=== PATIENT | female | born 1945 | race Caucasian/White ===

== ENCOUNTER 2017-06-13 21:20 | Inpatient (IN) | payer MEDICARE ==
[~2017-06-13] VITALS: Ht 172.7 cm; Wt 115.8 kg
[~2017-06-13 21:20] MED LIST: ALBU0.63 NEB; ASPI-515 PO; ATOR10TA9 PO; ATROVENT INH; CEFD300C37 PO; CHOL500045 PO; DOXY100T PO; FLUT1DIS5 IH; IPRA12.9 INH; LEVO125T5 PO; LISI-167 PO; LISI1TAB5 PO; LORA-445 PO; PRED10TA PO; PRED5TAB PO; PRED5TAB25 PO; SALBUTAMOL INH; SERT100T PO; SERT25TA PO; SIMV20TA3 PO
[2017-06-13] MEDS ORDERED: blood pressure med (21:32)
[2017-06-13 21:59] LABS: BASOPHILS % (AUTO) 0 % (0-1); EOSINOPHILS # (AUTO) 0.02 x10^3/uL (0-0.4); EOSINOPHILS % (AUTO) 0 % (1-7); LYMPHOCYTES % (AUTO) 9 % (22-44); MD NO; MEAN CORPUSCULAR HEMOGLOBIN 30.7 pg (27.0-34.8); MEAN CORPUSCULAR HGB CONC 33.3 g/dL (32.4-35.8); MEAN CORPUSCULAR VOLUME 92.1 fL (80-100); MEAN PLATELET VOLUME 8.1 fL (7.4-10.4); MONOCYTES # (AUTO) 0.55 x10^3/uL (0.2-0.8); MONOCYTES % (AUTO) 4 % (2-9); NEUTROPHILS # (AUTO) 10.84 x10^3/uL (1.8-6.8); NEUTROPHILS % (AUTO) 87 % (42-75); PLATELET COUNT 266 x10^3/uL (130-400); RED BLOOD COUNT 3.95 x10^6/uL (3.82-5.3)
[2017-06-13 22:10] LABS: ALBUMIN 3.8 g/dL (3.4-5.0); ANION GAP 6 mmol/L (5-15); CALCIUM 8.5 mg/dL (8.5-10.1); CHLORIDE 102 mmol/L (98-107); CREATININE 1.53 mg/dL (0.55-1.02)
[2017-06-13] MEDS ORDERED: HYDROmorphone 1 MG/ML, 1ML ONE (22:18)
[2017-06-13] MEDS ORDERED: ONDANSETRON 2MG/ML, 2ML ONE (22:18)
[2017-06-13] MEDS ORDERED: HYDROmorphone 1 MG/ML, 1ML IVPush PRN ×2 (22:30→23:00)
[2017-06-13] MEDS ORDERED: ONDANSETRON 2MG/ML, 2ML IVPush ONE (22:30)
[2017-06-13] MEDS ORDERED: ONDANSETRON 2MG/ML, 2ML IVPush PRN (23:00)
[2017-06-13] MEDS ORDERED: LORazepam 0.5MG TABLET PO PRN (23:30)
[2017-06-13] MEDS ORDERED: SODIUM CHLORIDE 0.9% 1,000 ML IV SCH (23:31)
[2017-06-14] VITALS (17 sets, daily range): BP systolic 59–93; BP diastolic 39–67
[2017-06-14] MEDS ORDERED: OXYcodone IR 5MG TABLET PO PRN
[2017-06-14] MEDS ORDERED: ACETAMINOPHEN 325 MG TABLET PO PRN
[2017-06-14] MEDS ORDERED: BISACODYL 10 MG SUPP PR PRN
[2017-06-14] MEDS ORDERED: ENALAPRILAT 1.25 MG/ML, 2ML IVPush PRN
[2017-06-14] MEDS ORDERED: IPRATROPIUM 0.5 MG/2.5 ML INHA NPPB SCH
[2017-06-14] MEDS ORDERED: POLYETHYLENE GLYCOL 17 GM PACKET PO PRN
[2017-06-14] MEDS ORDERED: ONDANSETRON 2MG/ML, 2ML IVPush PRN
[2017-06-14] MEDS ORDERED: hydrALAzine 20 MG/ML, 1ML IVPush PRN
[2017-06-14 00:01] LABS: FREE T4 (FREE THYROXINE) 1.05 ng/dL (0.76-1.46); THYROID STIMULATING HORMONE 16.9 mIU/L (0.358-3.740)
[2017-06-14 00:04] LABS: HEMOGLOBIN A1C 5.2 % (4.2-6.3)
[2017-06-14] MEDS: morphine SULFATE 10 MG/ML, 1ML IVPush PRN ×3 (00:48→05:59)
[2017-06-14] MEDS ORDERED: ALBUTEROL/IPRATROPIUM 2.5MG/0.5MG, 3 ML NPPB PRN (01:00)
[2017-06-14 02:37] LABS: MICROSCOPIC NOT IND
[2017-06-14 02:41] LABS: CULTURE INDICATED? NO
[2017-06-14 06:28] LABS: MEAN CORPUSCULAR HEMOGLOBIN 30.7 pg (27.0-34.8); MEAN CORPUSCULAR HGB CONC 33.7 g/dL (32.4-35.8); MEAN CORPUSCULAR VOLUME 91.1 fL (80-100); PLATELET COUNT 273 x10^3/uL (130-400); RED BLOOD COUNT 3.49 x10^6/uL (3.82-5.3)
[2017-06-14 06:32] LABS: ALANINE AMINOTRANSFERASE 19 U/L (12-78); ALBUMIN 3.6 g/dL (3.4-5.0); ANION GAP 7 mmol/L (5-15); CALCIUM 8.4 mg/dL (8.5-10.1); CHLORIDE 103 mmol/L (98-107); CHOLESTEROL, TOTAL 226 mg/dL (140-239); CREATININE 2.55 mg/dL (0.55-1.02)
[2017-06-14 06:34] LABS: ALKALINE PHOSPHATASE 51 U/L (45-117); BILIRUBIN,TOTAL 0.4 mg/dL (0.2-1.0); TOTAL PROTEIN 6.3 g/dL (6.4-8.2); TRIGLYCERIDES 72 mg/dL (50-200); VLDL CHOLESTEROL 14 mg/dL (0-25)
[2017-06-14 06:43] LABS: CHOL/HDL RATIO 2.3; HDL CHOL % 43 % (28-40); HDL CHOLESTEROL (DIRECT) 98 mg/dL (40-60); LDL CHOLESTEROL,CALCULATED 114 mg/dL (54-169); LDL/HDL RATIO 1.2 (0.5-3.0)
[2017-06-14] MEDS: LEVOTHYROXINE 125 MCG TABLET PO SCH (06:59)
[2017-06-14] MEDS: SENNA/DOCUSATE TABLET PO SCH (06:59)
[2017-06-14] MEDS: SERTRALINE 100MG TABLET PO SCH (06:59)
[2017-06-14 07:33] LABS: MD YES
[2017-06-14 07:34] LABS: BAND#(MANUAL) 0.18 x10^3/uL; BANDS%(MANUAL) 1 % (0-7); LYMPH#(MANUAL) 1.62 x10^3/uL (1-3.4); LYMPHS% (MANUAL) 9 % (22-44); MONOS#(MANUAL) 1.62 x10^3/uL (0.3-2.7); MONOS% (MANUAL) 9 % (2-9); SEG#(MANUAL) 14.58 x10^3/uL (1.8-6.8); SEGS% (MANUAL) 81 % (42-75)
[2017-06-14 07:35] LABS: <PLATELET ESTIMATE> ADEQUATE; <PLT MORPHOLOGY> NORMAL PLT MORPH; <RBC MORPHOLOGY> NORMAL
[2017-06-14] MEDS ORDERED: HYDROCHLOROTHIAZIDE 12.5 MG CAPSULE PO SCH (09:00)
[2017-06-14] MEDS: FLUTICASONE/VILANTEROL 200-25MCG/INH INH SCH (09:00)
[2017-06-14] MEDS ORDERED: LISINOPRIL 20 MG TABLET PO SCH (09:00)
[2017-06-14] MEDS ORDERED: KETOROLAC 30 MG/1 ML IVPush PRN ×2 (11:00→19:30)
[2017-06-14] MEDS: SODIUM CHLORIDE 0.9% 1,000 ML IV SCH (11:30)
[2017-06-14] MEDS ORDERED: SODIUM CHLORIDE 0.9% 1,000ML IVBOLUS ONE ×2 (12:30→14:30)
[2017-06-14] MEDS ORDERED: NALOXONE 0.4 MG/ML, 1ML IVPush ONE (13:00)
[2017-06-14] MEDS ORDERED: KETOROLAC 30 MG/1 ML IVPush SCH (13:30)
[2017-06-14] MEDS: HYDROCORTISONE 100 MG INJ. IVPush SCH ×2 (13:58→21:33)
[2017-06-14] MEDS: ACETAMINOPHEN 500 MG TABLET PO SCH ×2 (14:00→21:33)
[2017-06-14] MEDS: HEPARIN 5,000 UNITS/ML, 1ML SQ SCH (15:46)
[2017-06-14] MEDS ORDERED: SODIUM CHLORIDE 0.9%, 500ML IVBOLUS ONE (17:30)
[2017-06-14] MEDS: SIMVASTATIN 20 MG TABLET PO SCH (21:33)
[2017-06-14] MEDS ORDERED: ALUMINUM/MAG/SIMETHICONE 30 ML UDC PO ONE (23:30)
[2017-06-15] VITALS (12 sets, daily range): BP systolic 76–141; BP diastolic 48–81
[2017-06-15] MEDS: SODIUM CHLORIDE 0.9% 1,000 ML IV SCH ×2 (00:09→07:45)
[2017-06-15] MEDS: HEPARIN 5,000 UNITS/ML, 1ML SQ SCH ×4 (00:09→18:39)
[2017-06-15 05:27] LABS: ANION GAP 5 mmol/L (5-15); CALCIUM 8.1 mg/dL (8.5-10.1); CHLORIDE 107 mmol/L (98-107)
[2017-06-15 05:29] LABS: CREATININE 2.73 mg/dL (0.55-1.02)
[2017-06-15 05:30] LABS: MEAN CORPUSCULAR HEMOGLOBIN 32.4 pg (27.0-34.8); MEAN CORPUSCULAR HGB CONC 34.6 g/dL (32.4-35.8); MEAN CORPUSCULAR VOLUME 93.6 fL (80-100); MEAN PLATELET VOLUME 8.5 fL (7.4-10.4); PLATELET COUNT 186 x10^3/uL (130-400); RED BLOOD COUNT 2.64 x10^6/uL (3.82-5.3); RED CELL DISTRIBUTION WIDTH 14.8 % (9.6-15.2)
[2017-06-15 05:58] LABS: MD YES
[2017-06-15 06:00] LABS: BAND#(MANUAL) 0.18 x10^3/uL; BANDS%(MANUAL) 1 % (0-7); LYMPH#(MANUAL) 0.92 x10^3/uL (1-3.4); LYMPHS% (MANUAL) 5 % (22-44); MONOS#(MANUAL) 0.37 x10^3/uL (0.3-2.7); MONOS% (MANUAL) 2 % (2-9); MYELOCYTES# (MANUAL) 0.18 x10^3/uL (0-0); MYELOCYTES% (MANUAL) 1 % (0-0); SEG#(MANUAL) 16.74 x10^3/uL (1.8-6.8); SEGS% (MANUAL) 91 % (42-75)
[2017-06-15 06:02] LABS: <PLATELET ESTIMATE> ADEQUATE; <PLT MORPHOLOGY> NORMAL PLT MORPH; ANISOCYTOSIS 1+
[2017-06-15] MEDS ORDERED: OMEPRAZOLE 20 MG CAPSULE.DR PO SCH (07:30)
[2017-06-15] MEDS: LEVOTHYROXINE 125 MCG TABLET PO SCH (07:42)
[2017-06-15] MEDS: HYDROCORTISONE 100 MG INJ. IVPush SCH ×3 (07:42→22:58)
[2017-06-15] MEDS: FLUTICASONE/VILANTEROL 200-25MCG/INH INH SCH (07:46)
[2017-06-15] MEDS: SENNA/DOCUSATE TABLET PO SCH (07:47)
[2017-06-15] MEDS: SERTRALINE 100MG TABLET PO SCH (07:47)
[2017-06-15] MEDS: ACETAMINOPHEN 500 MG TABLET PO SCH ×3 (09:00→20:55)
[2017-06-15] MEDS: SALBUTAMOL INH PRN (09:00)
[2017-06-15] MEDS: LACTATED RINGERS 1,000 ML IV SCH ×2 (13:57→20:10)
[2017-06-15] MEDS: FAMOTIDINE 20 MG/2 ML IVPush SCH ×2 (14:10→20:55)
[2017-06-15] MEDS: SIMVASTATIN 20 MG TABLET PO SCH (20:55)
[2017-06-16] VITALS (10 sets, daily range): BP systolic 115–216; BP diastolic 62–99
[2017-06-16] MEDS: LACTATED RINGERS 1,000 ML IV SCH ×2 (03:34→09:51)
[2017-06-16 05:14] LABS: BASOPHILS # (AUTO) 0.01 x10^3/uL (0-0.1); BASOPHILS % (AUTO) 0 % (0-1); EOSINOPHILS % (AUTO) 0 % (1-7); LYMPHOCYTES # (AUTO) 0.55 x10^3/uL (1-3.4); LYMPHOCYTES % (AUTO) 4 % (22-44); MD NO; MEAN CORPUSCULAR HEMOGLOBIN 32.7 pg (27.0-34.8); MEAN CORPUSCULAR HGB CONC 34.7 g/dL (32.4-35.8); MEAN CORPUSCULAR VOLUME 94.4 fL (80-100); MEAN PLATELET VOLUME 8.9 fL (7.4-10.4); MONOCYTES # (AUTO) 0.51 x10^3/uL (0.2-0.8); MONOCYTES % (AUTO) 4 % (2-9); NEUTROPHILS # (AUTO) 13.42 x10^3/uL (1.8-6.8); NEUTROPHILS % (AUTO) 93 % (42-75); PLATELET COUNT 184 x10^3/uL (130-400); RED BLOOD COUNT 2.71 x10^6/uL (3.82-5.3)
[2017-06-16 05:23] LABS: ANION GAP 6 mmol/L (5-15); CALCIUM 8.5 mg/dL (8.5-10.1); CHLORIDE 111 mmol/L (98-107)
[2017-06-16] MEDS: HEPARIN 5,000 UNITS/ML, 1ML SQ SCH ×3 (05:23→21:07)
[2017-06-16] MEDS: HYDROCORTISONE 100 MG INJ. IVPush SCH ×2 (06:00→21:08)
[2017-06-16] MEDS: FLUTICASONE/VILANTEROL 200-25MCG/INH INH SCH (07:47)
[2017-06-16] MEDS: SALBUTAMOL INH PRN (07:48)
[2017-06-16] MEDS ORDERED: LORazepam 2 MG/ML, 1ML ONE (08:04)
[2017-06-16] MEDS: FAMOTIDINE 20 MG/2 ML IVPush SCH ×2 (08:08→08:51)
[2017-06-16] MEDS: LEVOTHYROXINE 125 MCG TABLET PO SCH (08:08)
[2017-06-16] MEDS ORDERED: LORazepam 2 MG/ML, 1ML IVPush PRN (08:30)
[2017-06-16] MEDS: SENNA/DOCUSATE TABLET PO SCH (08:49)
[2017-06-16] MEDS: SERTRALINE 100MG TABLET PO SCH (08:54)
[2017-06-16] MEDS: ACETAMINOPHEN 500 MG TABLET PO SCH ×2 (08:54→21:08)
[2017-06-16] MEDS ORDERED: AMLODIPINE 5 MG TABLET ONE (12:57)
[2017-06-16] MEDS ORDERED: AMLODIPINE 5 MG TABLET PO ONE (13:00)
[2017-06-16] MEDS ORDERED: ONDANSETRON 2MG/ML, 2ML ONE (13:30)
[2017-06-16] MEDS ORDERED: SUCCINYLCHOLINE 20 MG/ML, 10ML ONE (13:30)
[2017-06-16] MEDS ORDERED: MIDAZOLAM 1 MG/ML, 2ML ONE (13:30)
[2017-06-16] MEDS ORDERED: ROCURONIUM 10MG/ML,5ML ONE (13:30)
[2017-06-16] MEDS ORDERED: CEFAZOLIN 1,000 MG ONE (13:30)
[2017-06-16] MEDS ORDERED: PROPOFOL 10 MG/ML, 20ML ONE (13:30)
[2017-06-16] MEDS ORDERED: FENTANYL PF 250 MCG/5ML ONE (13:31)
[2017-06-16] MEDS ORDERED: hydrALAzine 20 MG/ML, 1ML IV PRN (14:30)
[2017-06-16] MEDS ORDERED: OXYcodone 5 MG/5 ML ORAL.SOL UDC PO PRN (14:30)
[2017-06-16] MEDS ORDERED: ONDANSETRON 2MG/ML, 2ML IVPush PRN (14:30)
[2017-06-16] MEDS ORDERED: ACETAMINOPHEN 325 MG TABLET PO PRN (14:30)
[2017-06-16] MEDS ORDERED: LABETALOL 5MG/ML, 20ML IV PRN (14:30)
[2017-06-16] MEDS ORDERED: FENTANYL PF 100 MCG/2ML IV PRN (14:30)
[2017-06-16] MEDS ORDERED: HYDROmorphone 1 MG/ML, 1ML IV PRN ×2 (14:30→16:30)
[2017-06-16] MEDS ORDERED: LABETALOL 5MG/ML, 20ML ONE (14:55)
[2017-06-16] MEDS ORDERED: OXYcodone 5 MG/5 ML ORAL.SOL UDC ONE (14:55)
[2017-06-16] MEDS ORDERED: ONDANSETRON 2MG/ML, 2ML IV PRN (16:30)
[2017-06-16] MEDS ORDERED: HYDROcodone/APAP 7.5-325MG/15ML UDC PO PRN (16:30)
[2017-06-16] MEDS: KETOROLAC 30 MG/1 ML IV SCH (17:22)
[2017-06-16] MEDS: DOCUSATE 100 MG CAPSULE PO SCH (21:07)
[2017-06-16] MEDS: SODIUM CHLORIDE FLUSH 10ML SYR IVF SCH (21:08)
[2017-06-16] MEDS: CEFAZOLIN PMX 2GM/100ML 100 ML IVPB SCH (21:08)
[2017-06-16] MEDS: SIMVASTATIN 20 MG TABLET PO SCH (21:08)
[2017-06-17 00:30] VITALS: BP 115/60
[2017-06-17] MEDS: KETOROLAC 30 MG/1 ML IV SCH ×2 (01:11→09:16)
[2017-06-17 04:10] VITALS: BP 136/71
[2017-06-17] MEDS: HEPARIN 5,000 UNITS/ML, 1ML SQ SCH ×3 (05:15→20:55)
[2017-06-17] MEDS: CEFAZOLIN PMX 2GM/100ML 100 ML IVPB SCH (05:15)
[2017-06-17 05:45] LABS: MEAN CORPUSCULAR HEMOGLOBIN 31.7 pg (27.0-34.8); MEAN CORPUSCULAR HGB CONC 33.4 g/dL (32.4-35.8); MEAN CORPUSCULAR VOLUME 94.8 fL (80-100); MEAN PLATELET VOLUME 8.8 fL (7.4-10.4); PLATELET COUNT 163 x10^3/uL (130-400); RED BLOOD COUNT 2.29 x10^6/uL (3.82-5.3); RED CELL DISTRIBUTION WIDTH 14.9 % (9.6-15.2)
[2017-06-17 05:46] LABS: ANION GAP 4 mmol/L (5-15); CALCIUM 8.5 mg/dL (8.5-10.1); CHLORIDE 110 mmol/L (98-107); CREATININE 1.54 mg/dL (0.55-1.02)
[2017-06-17] MEDS ORDERED: ENOXAPARIN 40 MG/0.4 ML SQ SCH (06:00)
[2017-06-17 06:18] LABS: BASOPHILS % (AUTO) 0 % (0-1); EOSINOPHILS % (AUTO) 0 % (1-7); LYMPHOCYTES # (AUTO) 0.61 x10^3/uL (1-3.4); LYMPHOCYTES % (AUTO) 6 % (22-44); MD SCAN; MONOCYTES # (AUTO) 0.87 x10^3/uL (0.2-0.8); MONOCYTES % (AUTO) 8 % (2-9); NEUTROPHILS # (AUTO) 9.15 x10^3/uL (1.8-6.8); NEUTROPHILS % (AUTO) 86 % (42-75)
[2017-06-17] MEDS ORDERED: LACTATED RINGERS 1,000 ML IVBOLUS ONE (07:00)
[2017-06-17 08:00] VITALS: BP 141/77
[2017-06-17] MEDS ORDERED: AMLODIPINE 5 MG TABLET PO SCH (09:00)
[2017-06-17] MEDS: DOCUSATE 100 MG CAPSULE PO SCH ×3 (09:00→20:56)
[2017-06-17] MEDS: SENNA/DOCUSATE TABLET PO SCH ×2 (09:00→09:17)
[2017-06-17] MEDS: HYDROCORTISONE 100 MG INJ. IVPush SCH (09:15)
[2017-06-17] MEDS: ACETAMINOPHEN 500 MG TABLET PO SCH ×2 (09:15→20:55)
[2017-06-17] MEDS: FLUTICASONE/VILANTEROL 200-25MCG/INH INH SCH (09:15)
[2017-06-17] MEDS: SERTRALINE 100MG TABLET PO SCH (09:16)
[2017-06-17] MEDS: LISINOPRIL 20 MG TABLET PO SCH (09:16)
[2017-06-17] MEDS: HYDROCHLOROTHIAZIDE 12.5 MG CAPSULE PO SCH (09:16)
[2017-06-17] MEDS: FAMOTIDINE 20 MG/2 ML IVPush SCH (09:16)
[2017-06-17] MEDS: LEVOTHYROXINE 125 MCG TABLET PO SCH (09:17)
[2017-06-17] MEDS: SODIUM CHLORIDE FLUSH 10ML SYR IVF SCH ×2 (09:17→21:00)
[2017-06-17] MEDS ORDERED: HYDROCORTISONE 5 MG TABLET ONE (11:52)
[2017-06-17] MEDS: HYDROCORTISONE 10 MG TABLET PO SCH ×2 (11:59→16:47)
[2017-06-17 12:55] VITALS: BP 167/73
[2017-06-17 20:00] VITALS: BP 169/86
[2017-06-17] MEDS: SIMVASTATIN 20 MG TABLET PO SCH (20:55)
[2017-06-18] VITALS (8 sets, daily range): BP systolic 136–175; BP diastolic 69–86
[2017-06-18 05:08] LABS: ANION GAP 4 mmol/L (5-15); CHLORIDE 109 mmol/L (98-107); MEAN CORPUSCULAR HEMOGLOBIN 33.1 pg (27.0-34.8); MEAN CORPUSCULAR VOLUME 94.6 fL (80-100); MEAN PLATELET VOLUME 8.7 fL (7.4-10.4); PLATELET COUNT 158 x10^3/uL (130-400); RED BLOOD COUNT 2.13 x10^6/uL (3.82-5.3); RED CELL DISTRIBUTION WIDTH 14.7 % (9.6-15.2)
[2017-06-18 05:09] LABS: CREATININE 1.36 mg/dL (0.55-1.02)
[2017-06-18] MEDS ORDERED: DIPHENHYDRAMINE 12.5MG/5ML, 10ML UDC PO ONE (05:30)
[2017-06-18 05:41] LABS: BASOPHILS # (AUTO) 0.03 x10^3/uL (0-0.1); BASOPHILS % (AUTO) 0 % (0-1); EOSINOPHILS # (AUTO) 0.03 x10^3/uL (0-0.4); EOSINOPHILS % (AUTO) 0 % (1-7); LYMPHOCYTES # (AUTO) 1.14 x10^3/uL (1-3.4); LYMPHOCYTES % (AUTO) 14 % (22-44); MD SCAN; MONOCYTES # (AUTO) 0.84 x10^3/uL (0.2-0.8); MONOCYTES % (AUTO) 10 % (2-9); NEUTROPHILS # (AUTO) 6.17 x10^3/uL (1.8-6.8); NEUTROPHILS % (AUTO) 75 % (42-75)
[2017-06-18] MEDS: POTASSIUM CHLORIDE 20 MEQ TAB.ER.PRT PO ONE ×2 (05:46→07:14)
[2017-06-18] MEDS: HEPARIN 5,000 UNITS/ML, 1ML SQ SCH ×3 (05:46→21:32)
[2017-06-18] MEDS ORDERED: SENN1TAB7 PO (07:52)
[2017-06-18] MEDS ORDERED: ENOX40SY4 SQ (07:52)
[2017-06-18] MEDS ORDERED: POLY17PO5 PO (07:52)
[2017-06-18] MEDS ORDERED: IPRA3AMP NPPB (07:52)
[2017-06-18] MEDS ORDERED: ACET500T71 PO (07:52)
[2017-06-18] MEDS ORDERED: OXYC1TAB7 PO (07:52)
[2017-06-18] MEDS: SODIUM CHLORIDE FLUSH 10ML SYR IVF SCH ×2 (09:00→21:33)
[2017-06-18] MEDS: SERTRALINE 100MG TABLET PO SCH (09:45)
[2017-06-18] MEDS: SENNA/DOCUSATE TABLET PO SCH (09:45)
[2017-06-18] MEDS: FAMOTIDINE 20 MG/2 ML IVPush SCH (09:45)
[2017-06-18] MEDS: LEVOTHYROXINE 125 MCG TABLET PO SCH (09:45)
[2017-06-18] MEDS: DOCUSATE 100 MG CAPSULE PO SCH ×2 (09:45→21:00)
[2017-06-18] MEDS: LISINOPRIL 20 MG TABLET PO SCH (09:45)
[2017-06-18] MEDS: HYDROCHLOROTHIAZIDE 12.5 MG CAPSULE PO SCH (09:45)
[2017-06-18] MEDS: ACETAMINOPHEN 500 MG TABLET PO SCH ×2 (09:45→21:33)
[2017-06-18] MEDS: FLUTICASONE/VILANTEROL 200-25MCG/INH INH SCH (09:47)
[2017-06-18] MEDS: OXYcodone/APAP 5/325MG TABLET PO PRN (14:03)
[2017-06-18] MEDS: SIMVASTATIN 20 MG TABLET PO SCH (21:33)
[2017-06-19 02:58] VITALS: BP 158/82
[2017-06-19] MEDS: HEPARIN 5,000 UNITS/ML, 1ML SQ SCH ×2 (05:53→13:05)
[2017-06-19] MEDS ORDERED: MAGNESIUM CITRATE 300ML ORAL SOL PO ONE (08:00)
[2017-06-19] MEDS: FLUTICASONE/VILANTEROL 200-25MCG/INH INH SCH (08:02)
[2017-06-19] MEDS: SENNA/DOCUSATE TABLET PO SCH (08:02)
[2017-06-19] MEDS: LEVOTHYROXINE 125 MCG TABLET PO SCH (08:02)
[2017-06-19] MEDS: LISINOPRIL 20 MG TABLET PO SCH (08:02)
[2017-06-19] MEDS: ACETAMINOPHEN 500 MG TABLET PO SCH (08:02)
[2017-06-19] MEDS: HYDROCHLOROTHIAZIDE 12.5 MG CAPSULE PO SCH (08:03)
[2017-06-19] MEDS: DOCUSATE 100 MG CAPSULE PO SCH (08:03)
[2017-06-19] MEDS: FAMOTIDINE 20 MG/2 ML IVPush SCH (08:03)
[2017-06-19] MEDS: SERTRALINE 100MG TABLET PO SCH (08:03)
[2017-06-19 08:09] VITALS: BP 139/88
[2017-06-19] MEDS: SODIUM CHLORIDE FLUSH 10ML SYR IVF SCH (08:12)
[2017-06-19] MEDS ORDERED: SENNA/DOCUSATE TABLET PO SCH (09:00)
[2017-06-19 12:59] VITALS: BP 148/68
[2017-06-19] MEDS: OXYcodone/APAP 5/325MG TABLET PO PRN (14:18)
[2017-06-20] MEDS ORDERED: FAMOTIDINE 20 MG TABLET PO SCH (09:00)
== END 2017-06-19 16:28 | DRG 480 ==
LOC: ED 22:03 → 4NOR 22:34 → ED 23:29
PROVIDERS: ADMIT Internal Medicine; ATTEND Internal Medicine
PROC: 0QSC35Z Reposition Left Lower Femur with External Fixation Device, Percutaneous Approach (ICD-10-PCS; principal; 2017-06-16 15:00)
PROC: 30233N1 Transfusion of Nonautologous Red Blood Cells into Peripheral Vein, Percutaneous Approach (ICD-10-PCS; 2017-06-18)
DX: S72.492A Other fracture of lower end of left femur, initial encounter for closed fracture (principal); N17.0 Acute kidney failure with tubular necrosis; J96.10 Chronic respiratory failure, unspecified whether with hypoxia or hypercapnia; E27.3 Drug-induced adrenocortical insufficiency; Z99.81 Dependence on supplemental oxygen; E66.01 Morbid (severe) obesity due to excess calories; J44.9 Chronic obstructive pulmonary disease, unspecified; W01.0XXA Fall on same level from slipping, tripping and stumbling without subsequent striking against object, initial encounter; E78.5 Hyperlipidemia, unspecified; N18.3 Chronic kidney disease, stage 3 (moderate); I12.9 Hypertensive chronic kidney disease with stage 1 through stage 4 chronic kidney disease, or unspecified chronic kidney disease; Z68.34 Body mass index [BMI] 34.0-34.9, adult; E55.9 Vitamin D deficiency, unspecified; E89.0 Postprocedural hypothyroidism; F32.9 Major depressive disorder, single episode, unspecified; Z87.891 Personal history of nicotine dependence; T38.0X5A Adverse effect of glucocorticoids and synthetic analogues, initial encounter; D64.9 Anemia, unspecified; W01.198A Fall on same level from slipping, tripping and stumbling with subsequent striking against other object, initial encounter; Y93.89 Activity, other specified; Y92.89 Other specified places as the place of occurrence of the external cause; Y99.8 Other external cause status
CPT/HCPCS: 36415; 71045; 76000; 80048; 80053; 80061; 81003; 82040; 83036; 83735; 84439; 84443; 85014; 85018; 85025; 86850; 86900; 86923; 93005; 96374; 96375; C1713; J0690; J1170; J1644; J1885; J2250; J2310; J2405; J2704; J3010; J0330; J1720; J2060; J2270; J7030; J7040; J7120; P9016; S0028

== ENCOUNTER 2017-08-08 19:32 | Inpatient (IN) | payer MEDICARE ==
[~2017-08-08] VITALS: Ht 167.6 cm; Wt 98.1 kg
[~2017-08-08 19:32] MED LIST changes: +ACET500T71 PO; +ENOX40SY4 SQ; +IPRA3AMP NPPB; +OXYC1TAB7 PO; +POLY17PO5 PO; +SENN1TAB7 PO; +blood pressure med
[2017-08-08] MEDS ORDERED: ALBUTEROL/IPRATROPIUM 2.5MG/0.5MG, 3 ML ONE (19:37)
[2017-08-08] MEDS ORDERED: LABETALOL 5MG/ML, 20ML ONE ×2 (19:40→19:42)
[2017-08-08] MEDS ORDERED: NITROGLYCERIN/D5W PMX 0 ML ONE (19:40)
[2017-08-08] MEDS ORDERED: NITROGLYCERIN/D5W PMX 250 ML ONE (19:43)
[2017-08-08] MEDS ORDERED: methylPREDNISolone SOD SUCC 125 MG/2 ML ONE (19:46)
[2017-08-08] MEDS ORDERED: methylPREDNISolone SOD SUCC 125 MG/2 ML IVP ONE (20:00)
[2017-08-08] MEDS ORDERED: SODIUM CHLORIDE FLUSH 10ML SYR IVF ONE (20:00)
[2017-08-08] MEDS ORDERED: LABETALOL 5MG/ML, 20ML IVPush ONE (20:00)
[2017-08-08] MEDS ORDERED: NITROGLYCERIN/D5W PMX 250 ML IV PRN (20:00)
[2017-08-08] MEDS ORDERED: ALBUTEROL/IPRATROPIUM 2.5MG/0.5MG, 3 ML NPPB SCH (20:00)
[2017-08-08] MEDS ORDERED: ALBUTEROL/IPRATROPIUM 2.5MG/0.5MG, 3 ML NPPB PRN ×3 (20:00→23:00)
[2017-08-08 20:04] LABS: BASOPHILS # (AUTO) 0.01 x10^3/uL (0-0.1); BASOPHILS % (AUTO) 0 % (0-1); EOSINOPHILS # (AUTO) 0.01 x10^3/uL (0-0.4); EOSINOPHILS % (AUTO) 0 % (1-7); LYMPHOCYTES # (AUTO) 1.11 x10^3/uL (1-3.4); LYMPHOCYTES % (AUTO) 8 % (22-44); MD NO; MEAN CORPUSCULAR HEMOGLOBIN 34.9 pg (27.0-34.8); MEAN CORPUSCULAR HGB CONC 35.8 g/dL (32.4-35.8); MEAN CORPUSCULAR VOLUME 97.6 fL (80-100); MEAN PLATELET VOLUME 8.5 fL (7.4-10.4); MONOCYTES # (AUTO) 0.06 x10^3/uL (0.2-0.8); MONOCYTES % (AUTO) 0 % (2-9); NEUTROPHILS # (AUTO) 13.69 x10^3/uL (1.8-6.8); NEUTROPHILS % (AUTO) 92 % (42-75); PLATELET COUNT 276 x10^3/uL (130-400); RED BLOOD COUNT 3.47 x10^6/uL (3.82-5.3); RED CELL DISTRIBUTION WIDTH 15.7 % (9.6-15.2)
[2017-08-08 20:13] LABS: ALANINE AMINOTRANSFERASE 34 U/L (12-78); ALBUMIN 3.9 g/dL (3.4-5.0); ANION GAP 9 mmol/L (5-15); CALCIUM 9.3 mg/dL (8.5-10.1); CHLORIDE 103 mmol/L (98-107); CREATININE 1.25 mg/dL (0.55-1.02); INTERNATIONAL NORMALIZED RATIO 1.03 (0.93-1.1); PROTHROMBIN TIME 10.7 Seconds (9.6-11.5)
[2017-08-08 20:17] LABS: ALKALINE PHOSPHATASE 108 U/L (45-117); BILIRUBIN,TOTAL 0.5 mg/dL (0.2-1.0); TOTAL PROTEIN 7.7 g/dL (6.4-8.2); TROPONIN I 0.091 ng/mL (0.000-0.045)
[2017-08-08] MEDS ORDERED: CEFTRIAXONE PMX 1GM/50ML 50 ML ONE (20:20)
[2017-08-08] MEDS ORDERED: NITROGLYCERIN OINT 2%, 1GM TP ONE ×2 (20:20→20:30)
[2017-08-08] MEDS ORDERED: FUROSEMIDE 20 MG/2 ML ONE (20:27)
[2017-08-08] MEDS ORDERED: ASPIRIN 325 MG TABLET ONE (20:27)
[2017-08-08] MEDS ORDERED: AZITHROMYCIN 500 MG in SODIUM CHLORIDE 0.9% 250 ML IVPB ONE (20:30)
[2017-08-08] MEDS ORDERED: CEFTRIAXONE PMX 1GM/50ML 50 ML IVPB ONE (20:30)
[2017-08-08] MEDS ORDERED: ASPIRIN 325 MG TABLET PO ONE (20:30)
[2017-08-08] MEDS ORDERED: FUROSEMIDE 20 MG/2 ML IV ONE (20:30)
[2017-08-08] MEDS ORDERED: ALBUTEROL SULFATE 2.5 MG/3 ML ONE (20:43)
[2017-08-08] MEDS ORDERED: hydrALAzine 20 MG/ML, 1ML IVPush PRN (22:00)
[2017-08-08] MEDS ORDERED: DOCUSATE 100 MG CAPSULE PO PRN (22:00)
[2017-08-08] MEDS ORDERED: ACETAMINOPHEN 325 MG TABLET PO PRN (22:00)
[2017-08-08] MEDS ORDERED: RIVA10TA PO (23:12)
[2017-08-08] MEDS ORDERED: PRED20TA PO (23:12)
[2017-08-08 23:13] VITALS: BP 143/85
[2017-08-09] MEDS: SIMVASTATIN 20 MG TABLET PO SCH ×2 (00:30→20:00)
[2017-08-09] MEDS ORDERED: IPRA4AER INH (02:11)
[2017-08-09 02:24] VITALS: BP 135/82
[2017-08-09 02:33] LABS: TROPONIN I 0.397 ng/mL (0.000-0.045)
[2017-08-09] MEDS: ALBUTEROL/IPRATROPIUM 2.5MG/0.5MG, 3 ML NPPB SCH ×4 (06:11→20:05)
[2017-08-09 08:08] LABS: BASOPHILS # (AUTO) 0.02 x10^3/uL (0-0.1); BASOPHILS % (AUTO) 0 % (0-1); EOSINOPHILS % (AUTO) 0 % (1-7); LYMPHOCYTES # (AUTO) 0.34 x10^3/uL (1-3.4); LYMPHOCYTES % (AUTO) 4 % (22-44); MD NO; MEAN CORPUSCULAR HEMOGLOBIN 30.8 pg (27.0-34.8); MEAN CORPUSCULAR HGB CONC 32.9 g/dL (32.4-35.8); MEAN CORPUSCULAR VOLUME 93.7 fL (80-100); MONOCYTES # (AUTO) 0.21 x10^3/uL (0.2-0.8); MONOCYTES % (AUTO) 2 % (2-9); NEUTROPHILS # (AUTO) 8.71 x10^3/uL (1.8-6.8); NEUTROPHILS % (AUTO) 94 % (42-75); PLATELET COUNT 188 x10^3/uL (130-400); RED BLOOD COUNT 3.19 x10^6/uL (3.82-5.3)
[2017-08-09 08:20] VITALS: BP 158/89
[2017-08-09 08:20] LABS: ANION GAP 8 mmol/L (5-15); CALCIUM 8.5 mg/dL (8.5-10.1); CHLORIDE 103 mmol/L (98-107); CREATININE 1.26 mg/dL (0.55-1.02)
[2017-08-09 08:24] LABS: TROPONIN I 0.236 ng/mL (0.000-0.045)
[2017-08-09] MEDS ORDERED: FLUT1BLS INH (09:25)
[2017-08-09] MEDS ORDERED: FLUTICASONE/VILANTEROL 200-25MCG/INH INH SCH (09:30)
[2017-08-09] MEDS: FUROSEMIDE 20 MG/2 ML IV SCH ×2 (09:54→17:27)
[2017-08-09] MEDS: LORazepam 0.5MG TABLET PO PRN ×2 (09:54→21:34)
[2017-08-09] MEDS: HYDROCHLOROTHIAZIDE 12.5 MG CAPSULE PO SCH (09:55)
[2017-08-09] MEDS: SERTRALINE 100MG TABLET PO SCH (09:55)
[2017-08-09] MEDS: LISINOPRIL 20 MG TABLET PO SCH (09:55)
[2017-08-09] MEDS: RIVAROXABAN 10 MG TABLET PO SCH (09:55)
[2017-08-09] MEDS: LEVOTHYROXINE 125 MCG TABLET PO SCH (09:56)
[2017-08-09] MEDS ORDERED: FLUT1AER INH (13:28)
[2017-08-09 14:14] VITALS: BP 118/74
[2017-08-09] MEDS: FLUTICASONE/VILANTEROL 100-25MCG/INH INH SCH (19:59)
[2017-08-09] MEDS: CEFTRIAXONE PMX 1GM/50ML 50 ML IV SCH (20:00)
[2017-08-09 20:13] VITALS: BP_SYST 137
[2017-08-09] MEDS: AZITHROMYCIN 500 MG in SODIUM CHLORIDE 0.9% 250 ML IV SCH (21:32)
[2017-08-10 03:25] VITALS: BP 131/78
[2017-08-10] MEDS: ALBUTEROL/IPRATROPIUM 2.5MG/0.5MG, 3 ML NPPB SCH ×4 (07:00→21:15)
[2017-08-10 07:28] VITALS: BP 167/90
[2017-08-10] MEDS: FUROSEMIDE 20 MG/2 ML IV SCH (09:25)
[2017-08-10] MEDS: LEVOTHYROXINE 125 MCG TABLET PO SCH (09:26)
[2017-08-10] MEDS: LISINOPRIL 20 MG TABLET PO SCH (09:26)
[2017-08-10] MEDS: RIVAROXABAN 10 MG TABLET PO SCH (09:26)
[2017-08-10] MEDS: SERTRALINE 100MG TABLET PO SCH (09:26)
[2017-08-10] MEDS: HYDROCHLOROTHIAZIDE 12.5 MG CAPSULE PO SCH (09:26)
[2017-08-10] MEDS: FUROSEMIDE 40 MG TABLET PO SCH (10:00)
[2017-08-10] MEDS ORDERED: DILTIAZEM 30 MG TABLET ONE ×2 (11:20→17:04)
[2017-08-10 11:25] VITALS: BP 105/71
[2017-08-10] MEDS: methylPREDNISolone SOD SUCC 40 MG/ML IV SCH ×3 (11:26→22:27)
[2017-08-10] MEDS: DILTIAZEM 60 MG TABLET PO SCH ×3 (11:26→22:28)
[2017-08-10 14:26] VITALS: BP 112/69
[2017-08-10 20:00] VITALS: BP 145/72
[2017-08-10] MEDS: CEFTRIAXONE PMX 1GM/50ML 50 ML IV SCH (20:02)
[2017-08-10] MEDS: SIMVASTATIN 20 MG TABLET PO SCH (20:03)
[2017-08-10] MEDS: FLUTICASONE/VILANTEROL 100-25MCG/INH INH SCH (20:03)
[2017-08-10] MEDS: AZITHROMYCIN 500 MG in SODIUM CHLORIDE 0.9% 250 ML IV SCH (22:27)
[2017-08-10] MEDS: LORazepam 0.5MG TABLET PO PRN (22:28)
[2017-08-10 22:30] VITALS: BP 144/81
[2017-08-11 02:26] VITALS: BP 125/77
[2017-08-11 03:56] VITALS: BP 121/73
[2017-08-11] MEDS: methylPREDNISolone SOD SUCC 40 MG/ML IV SCH ×4 (03:57→22:21)
[2017-08-11] MEDS: DILTIAZEM 60 MG TABLET PO SCH ×4 (03:58→22:00)
[2017-08-11 05:21] LABS: CHLORIDE 99 mmol/L (98-107)
[2017-08-11 05:29] LABS: ALANINE AMINOTRANSFERASE 32 U/L (12-78); ALBUMIN 3.2 g/dL (3.4-5.0); ALKALINE PHOSPHATASE 80 U/L (45-117); ANION GAP 7 mmol/L (5-15); BILIRUBIN,TOTAL 0.3 mg/dL (0.2-1.0); CALCIUM 8.4 mg/dL (8.5-10.1); CREATININE 1.29 mg/dL (0.55-1.02); TOTAL PROTEIN 6.4 g/dL (6.4-8.2)
[2017-08-11] MEDS: ALBUTEROL/IPRATROPIUM 2.5MG/0.5MG, 3 ML NPPB SCH ×4 (07:00→19:35)
[2017-08-11 07:56] VITALS: BP 137/79
[2017-08-11] MEDS: HYDROCHLOROTHIAZIDE 12.5 MG CAPSULE PO SCH (09:37)
[2017-08-11] MEDS: FUROSEMIDE 40 MG TABLET PO SCH (09:37)
[2017-08-11] MEDS: LISINOPRIL 20 MG TABLET PO SCH (09:38)
[2017-08-11] MEDS: RIVAROXABAN 10 MG TABLET PO SCH (09:38)
[2017-08-11] MEDS: SERTRALINE 100MG TABLET PO SCH (09:38)
[2017-08-11] MEDS: LEVOTHYROXINE 125 MCG TABLET PO SCH (09:38)
[2017-08-11 13:30] VITALS: BP 117/80
[2017-08-11 17:14] VITALS: BP 126/84
[2017-08-11] MEDS: CEFTRIAXONE PMX 1GM/50ML 50 ML IV SCH (20:35)
[2017-08-11] MEDS: FLUTICASONE/VILANTEROL 100-25MCG/INH INH SCH (20:36)
[2017-08-11] MEDS: SIMVASTATIN 20 MG TABLET PO SCH (20:36)
[2017-08-11 20:44] VITALS: BP 121/79
[2017-08-11] MEDS ORDERED: DILTIAZEM 30 MG TABLET ONE (22:17)
[2017-08-11] MEDS: LORazepam 0.5MG TABLET PO PRN (22:20)
[2017-08-11] MEDS: AZITHROMYCIN 500 MG in SODIUM CHLORIDE 0.9% 250 ML IV SCH (22:22)
[2017-08-12 03:51] VITALS: BP 143/85
[2017-08-12] MEDS: DILTIAZEM 60 MG TABLET PO SCH ×4 (03:55→22:00)
[2017-08-12] MEDS: methylPREDNISolone SOD SUCC 40 MG/ML IV SCH ×4 (03:55→22:13)
[2017-08-12 04:42] LABS: ANION GAP 7 mmol/L (5-15); CALCIUM 8.8 mg/dL (8.5-10.1); CHLORIDE 97 mmol/L (98-107)
[2017-08-12 04:43] LABS: CREATININE 1.51 mg/dL (0.55-1.02)
[2017-08-12 07:32] VITALS: BP 141/80
[2017-08-12] MEDS: ALBUTEROL/IPRATROPIUM 2.5MG/0.5MG, 3 ML NPPB SCH ×4 (07:50→19:15)
[2017-08-12] MEDS: LORazepam 0.5MG TABLET PO PRN ×2 (08:17→22:14)
[2017-08-12] MEDS ORDERED: REGADENOSON 0.4 MG/5 ML SYRINGE ONE (08:22)
[2017-08-12] MEDS: SERTRALINE 100MG TABLET PO SCH (08:35)
[2017-08-12] MEDS: POTASSIUM CHLORIDE 20 MEQ TAB.ER.PRT PO SCH ×2 (08:35→10:45)
[2017-08-12] MEDS: LEVOTHYROXINE 125 MCG TABLET PO SCH (08:35)
[2017-08-12] MEDS: HYDROCHLOROTHIAZIDE 12.5 MG CAPSULE PO SCH (08:36)
[2017-08-12] MEDS: RIVAROXABAN 10 MG TABLET PO SCH (10:41)
[2017-08-12 10:53] VITALS: BP 128/76
[2017-08-12 13:34] VITALS: BP 139/75
[2017-08-12 19:29] VITALS: BP 117/72
[2017-08-12] MEDS: CEFTRIAXONE PMX 1GM/50ML 50 ML IV SCH (20:00)
[2017-08-12] MEDS: SIMVASTATIN 20 MG TABLET PO SCH (20:01)
[2017-08-12] MEDS: FLUTICASONE/VILANTEROL 100-25MCG/INH INH SCH (20:01)
[2017-08-12] MEDS ORDERED: DILTIAZEM 30 MG TABLET ONE (22:08)
[2017-08-12] MEDS: AZITHROMYCIN 500 MG in SODIUM CHLORIDE 0.9% 250 ML IV SCH (22:13)
[2017-08-13 00:06] VITALS: BP 116/76
[2017-08-13] MEDS: DILTIAZEM 60 MG TABLET PO SCH ×2 (04:59→10:00)
[2017-08-13] MEDS: methylPREDNISolone SOD SUCC 40 MG/ML IV SCH ×2 (05:00→10:07)
[2017-08-13 07:43] VITALS: BP 127/76
[2017-08-13] MEDS: ALBUTEROL/IPRATROPIUM 2.5MG/0.5MG, 3 ML NPPB SCH ×2 (07:55→10:42)
[2017-08-13] MEDS ORDERED: CEFD300C37 PO (08:16)
[2017-08-13] MEDS ORDERED: PRED10TA PO (08:16)
[2017-08-13] MEDS ORDERED: DILT240C80 PO (08:16)
[2017-08-13] MEDS ORDERED: AZIT500T PO (08:16)
[2017-08-13] MEDS: RIVAROXABAN 10 MG TABLET PO SCH (09:00)
[2017-08-13] MEDS ORDERED: FUROSEMIDE 20 MG TABLET PO SCH (10:00)
[2017-08-13] MEDS: SERTRALINE 100MG TABLET PO SCH (10:02)
[2017-08-13] MEDS: HYDROCHLOROTHIAZIDE 12.5 MG CAPSULE PO SCH (10:02)
[2017-08-13] MEDS: LEVOTHYROXINE 125 MCG TABLET PO SCH (10:02)
[2017-08-13] MEDS ORDERED: DILTIAZEM 30 MG TABLET ONE ×2 (10:06→10:10)
[2017-08-13 12:35] VITALS: BP 145/83
== END 2017-08-13 14:04 | disposition home or self-care (01) | DRG 291 ==
LOC: ED 20:03 → EDIP 22:01 → 5SO 22:06
PROVIDERS: ADMIT Internal Medicine; ATTEND Internal Medicine
DX: I11.0 Hypertensive heart disease with heart failure (principal); J96.21 Acute and chronic respiratory failure with hypoxia; J15.9 Unspecified bacterial pneumonia; E87.2 Acidosis; I31.3 Pericardial effusion (noninflammatory); E66.01 Morbid (severe) obesity due to excess calories; J96.22 Acute and chronic respiratory failure with hypercapnia; I24.8 Other forms of acute ischemic heart disease; F33.0 Major depressive disorder, recurrent, mild; J44.0 Chronic obstructive pulmonary disease with (acute) lower respiratory infection; J44.1 Chronic obstructive pulmonary disease with (acute) exacerbation; I50.43 Acute on chronic combined systolic (congestive) and diastolic (congestive) heart failure; Z99.81 Dependence on supplemental oxygen; I16.0 Hypertensive urgency; E03.9 Hypothyroidism, unspecified; E78.5 Hyperlipidemia, unspecified; F41.9 Anxiety disorder, unspecified; Z79.01 Long term (current) use of anticoagulants; Z79.52 Long term (current) use of systemic steroids; Z79.82 Long term (current) use of aspirin; Z82.49 Family history of ischemic heart disease and other diseases of the circulatory system; Z82.5 Family history of asthma and other chronic lower respiratory diseases; Z87.891 Personal history of nicotine dependence; Z87.81 Personal history of (healed) traumatic fracture; Z68.34 Body mass index [BMI] 34.0-34.9, adult
CPT/HCPCS: 36415; 36600; 71045; 78452; 78582; 80048; 80053; 82803; 83735; 83880; 84484; 85025; 85610; 85730; 87040; 93005; 93017; 93306; 94640; 96365; 96375; J0456; J0696; J2785; J7620; A9502; A9540; A9558; C9898; J1940; J2920; J2930; J7050; J7512

== ENCOUNTER 2017-10-21 03:13 | Inpatient (IN) | payer MEDICARE ==
[~2017-10-21] VITALS: Ht 167.6 cm; Wt 91.4 kg
[~2017-10-21 03:13] MED LIST changes: +AZIT500T PO; +DILT240C80 PO; +FLUT1AER INH; +FLUT1BLS INH; +IPRA4AER INH; +PRED20TA PO; +RIVA10TA PO
[2017-10-21] MEDS ORDERED: ALBUTEROL/IPRATROPIUM 2.5MG/0.5MG, 3 ML NPPB ONE (03:30)
[2017-10-21] MEDS ORDERED: SODIUM CHLORIDE FLUSH 10ML SYR IVF ONE (03:30)
[2017-10-21] MEDS ORDERED: ALBUTEROL/IPRATROPIUM 2.5MG/0.5MG, 3 ML ONE (03:33)
[2017-10-21] MEDS ORDERED: LISI-167 PO (03:43)
[2017-10-21] MEDS ORDERED: SPIR50TA2 PO (03:43)
[2017-10-21] MEDS ORDERED: ASPI-496 PO (03:43)
[2017-10-21] MEDS ORDERED: HYDR12.58 PO (03:43)
[2017-10-21 03:47] LABS: BASOPHILS # (AUTO) 0.06 x10^3/uL (0-0.1); BASOPHILS % (AUTO) 1 % (0-1); EOSINOPHILS # (AUTO) 0.03 x10^3/uL (0-0.4); EOSINOPHILS % (AUTO) 0 % (1-7); LYMPHOCYTES # (AUTO) 1.32 x10^3/uL (1-3.4); LYMPHOCYTES % (AUTO) 11 % (22-44); MD NO; MEAN CORPUSCULAR HEMOGLOBIN 31.6 pg (27.0-34.8); MEAN CORPUSCULAR HGB CONC 34.3 g/dL (32.4-35.8); MEAN CORPUSCULAR VOLUME 92.1 fL (80-100); MEAN PLATELET VOLUME 8.1 fL (7.4-10.4); MONOCYTES # (AUTO) 1.07 x10^3/uL (0.2-0.8); MONOCYTES % (AUTO) 9 % (2-9); NEUTROPHILS # (AUTO) 9.32 x10^3/uL (1.8-6.8); NEUTROPHILS % (AUTO) 79 % (42-75); PLATELET COUNT 235 x10^3/uL (130-400); RED BLOOD COUNT 3.88 x10^6/uL (3.82-5.3); RED CELL DISTRIBUTION WIDTH 15.3 % (9.6-15.2)
[2017-10-21 03:57] LABS: ALBUMIN 3.8 g/dL (3.4-5.0); ANION GAP 6 mmol/L (5-15); CALCIUM 8.9 mg/dL (8.5-10.1); CHLORIDE 93 mmol/L (98-107); CREATININE 1.41 mg/dL (0.55-1.02)
[2017-10-21 04:01] LABS: TROPONIN I 0.079 ng/mL (0.000-0.045)
[2017-10-21] MEDS ORDERED: SALBUTAMOL INH PRN (05:00)
[2017-10-21] MEDS ORDERED: ONDANSETRON 2MG/ML, 2ML IVPush PRN (05:00)
[2017-10-21] MEDS ORDERED: ALBUTEROL SULFATE 2.5 MG/3 ML NEB PRN (05:00)
[2017-10-21] MEDS ORDERED: ALBUTEROL/IPRATROPIUM 2.5MG/0.5MG, 3 ML NPPB PRN (05:00)
[2017-10-21] MEDS ORDERED: GUAIFENESIN/DM 200-20MG, 10ML UDC PO PRN (05:00)
[2017-10-21] MEDS ORDERED: POLYETHYLENE GLYCOL 17 GM PACKET PO PRN (05:00)
[2017-10-21] MEDS ORDERED: IPRATROPIUM 0.5 MG/2.5 ML INHA HHN PRN (05:00)
[2017-10-21] MEDS ORDERED: ACETAMINOPHEN 325 MG TABLET PO PRN (05:00)
[2017-10-21 05:30] VITALS: BP 128/76
[2017-10-21] MEDS: methylPREDNISolone SOD SUCC 40 MG/ML IV SCH ×3 (06:01→20:59)
[2017-10-21] MEDS: ALBUTEROL/IPRATROPIUM 2.5MG/0.5MG, 3 ML NPPB SCH ×5 (06:35→21:30)
[2017-10-21] MEDS: ENOXAPARIN 30 MG/0.3 ML SQ SCH (08:11)
[2017-10-21] MEDS: ASPIRIN 81 MG TABLET CHEW PO SCH (08:11)
[2017-10-21] MEDS: DILTIAZEM 240 MG CAP.ER.24H PO SCH (08:11)
[2017-10-21] MEDS: LEVOTHYROXINE 125 MCG TABLET PO SCH (08:12)
[2017-10-21] MEDS: FAMOTIDINE 20 MG TABLET PO SCH ×2 (08:12→20:59)
[2017-10-21] MEDS: SODIUM CHLORIDE 0.9% 1,000 ML IV SCH ×2 (08:14→20:59)
[2017-10-21 08:16] VITALS: BP 109/68
[2017-10-21 12:31] LABS: MICROSCOPIC AUTO
[2017-10-21 12:33] LABS: CULTURE INDICATED? YES
[2017-10-21 13:35] VITALS: BP 101/70
[2017-10-21 17:03] LABS: ALBUMIN 3.5 g/dL (3.4-5.0); ANION GAP 7 mmol/L (5-15); CALCIUM 8.3 mg/dL (8.5-10.1); CHLORIDE 99 mmol/L (98-107); CREATININE 1.39 mg/dL (0.55-1.02)
[2017-10-21 18:33] VITALS: BP 105/67
[2017-10-21] MEDS: SIMVASTATIN 20 MG TABLET PO SCH (20:59)
[2017-10-21] MEDS: FLUTICASONE/VILANTEROL 100-25MCG/INH INH SCH (21:37)
[2017-10-22 01:01] VITALS: BP 129/79
[2017-10-22] MEDS: methylPREDNISolone SOD SUCC 40 MG/ML IV SCH (04:54)
[2017-10-22 05:28] LABS: BASOPHILS % (AUTO) 0 % (0-1); EOSINOPHILS % (AUTO) 0 % (1-7); LYMPHOCYTES % (AUTO) 5 % (22-44); MD NO; MEAN CORPUSCULAR HGB CONC 34.7 g/dL (32.4-35.8); MEAN PLATELET VOLUME 8.3 fL (7.4-10.4); MONOCYTES # (AUTO) 0.55 x10^3/uL (0.2-0.8); MONOCYTES % (AUTO) 4 % (2-9); NEUTROPHILS # (AUTO) 12.09 x10^3/uL (1.8-6.8); NEUTROPHILS % (AUTO) 91 % (42-75); PLATELET COUNT 212 x10^3/uL (130-400); RED BLOOD COUNT 3.34 x10^6/uL (3.82-5.3); RED CELL DISTRIBUTION WIDTH 15.3 % (9.6-15.2)
[2017-10-22 05:38] LABS: ANION GAP 6 mmol/L (5-15); CALCIUM 8.5 mg/dL (8.5-10.1); CHLORIDE 102 mmol/L (98-107)
[2017-10-22 05:41] LABS: CREATININE 1.08 mg/dL (0.55-1.02)
[2017-10-22] MEDS: ALBUTEROL/IPRATROPIUM 2.5MG/0.5MG, 3 ML NPPB SCH ×4 (07:05→19:24)
[2017-10-22 07:35] VITALS: BP 154/81
[2017-10-22] MEDS: ENOXAPARIN 30 MG/0.3 ML SQ SCH (07:45)
[2017-10-22] MEDS: LORazepam 0.5MG TABLET PO PRN ×3 (07:45→20:19)
[2017-10-22] MEDS: LEVOTHYROXINE 125 MCG TABLET PO SCH (07:46)
[2017-10-22] MEDS: DILTIAZEM 240 MG CAP.ER.24H PO SCH (07:46)
[2017-10-22] MEDS: FAMOTIDINE 20 MG TABLET PO SCH ×2 (07:46→20:19)
[2017-10-22] MEDS: ASPIRIN 81 MG TABLET CHEW PO SCH (07:46)
[2017-10-22 13:57] VITALS: BP 131/69
[2017-10-22] MEDS ORDERED: FUROSEMIDE 20 MG/2 ML IV ONE (15:00)
[2017-10-22 19:04] VITALS: BP 119/63
[2017-10-22] MEDS: FLUTICASONE/VILANTEROL 100-25MCG/INH INH SCH (20:18)
[2017-10-22] MEDS: SIMVASTATIN 20 MG TABLET PO SCH (20:19)
[2017-10-23 03:27] VITALS: BP 138/74
[2017-10-23] MEDS: ALBUTEROL/IPRATROPIUM 2.5MG/0.5MG, 3 ML NPPB SCH ×2 (07:10→11:35)
[2017-10-23] MEDS ORDERED: PRED20TA PO (07:16)
[2017-10-23 08:00] VITALS: BP 124/74
[2017-10-23] MEDS: ASPIRIN 81 MG TABLET CHEW PO SCH (08:33)
[2017-10-23] MEDS: DILTIAZEM 240 MG CAP.ER.24H PO SCH (08:33)
[2017-10-23] MEDS: FAMOTIDINE 20 MG TABLET PO SCH (08:34)
[2017-10-23] MEDS: LEVOTHYROXINE 125 MCG TABLET PO SCH (08:34)
[2017-10-23] MEDS: LORazepam 0.5MG TABLET PO PRN (08:44)
[2017-10-23] MEDS ORDERED: ENOXAPARIN 40 MG/0.4 ML SQ SCH (09:00)
[2017-10-23 13:16] VITALS: BP 150/85
== END 2017-10-23 14:05 | disposition home health service (06) | DRG 682 ==
LOC: ED 04:29 → SUATTDRO 04:49 → EDIP 04:50 → 5SO 05:25 → DCLOUNGE 10-23 13:55
PROVIDERS: ADMIT Hospitalist; ATTEND Internal Medicine
DX: N17.9 Acute kidney failure, unspecified (principal); J96.21 Acute and chronic respiratory failure with hypoxia; I24.8 Other forms of acute ischemic heart disease; J44.1 Chronic obstructive pulmonary disease with (acute) exacerbation; Z68.32 Body mass index [BMI] 32.0-32.9, adult; I44.7 Left bundle-branch block, unspecified; Z66 Do not resuscitate; E66.01 Morbid (severe) obesity due to excess calories; E03.9 Hypothyroidism, unspecified; F32.9 Major depressive disorder, single episode, unspecified; I11.0 Hypertensive heart disease with heart failure; I50.9 Heart failure, unspecified; E78.5 Hyperlipidemia, unspecified; F41.9 Anxiety disorder, unspecified; I16.0 Hypertensive urgency; Z87.01 Personal history of pneumonia (recurrent); Z99.81 Dependence on supplemental oxygen; I25.2 Old myocardial infarction; Z79.52 Long term (current) use of systemic steroids; Z82.49 Family history of ischemic heart disease and other diseases of the circulatory system; Z82.5 Family history of asthma and other chronic lower respiratory diseases; Z87.891 Personal history of nicotine dependence
CPT/HCPCS: 36415; 71045; 80048; 81001; 82040; 83735; 83880; 84100; 84484; 85025; 87086; 93005; 94640; 99285; J1650; J7613; J7620; J1940; J2920; J7030; J7512

== ENCOUNTER 2019-01-21 20:50 | Inpatient (IN) | payer MEDICARE ==
[~2019-01-21] VITALS: Ht 165.1 cm; Wt 89.7 kg
[~2019-01-21 20:50] MED LIST changes: +ACET500T64 PO; -ACET500T71 PO; +ASPI-496 PO; +HYDROCHLOROTH12.5 MG PO; -IPRA3AMP NPPB; +IPRA3AMP30 NPPB; +LISI1TAB19 PO; -LISI1TAB5 PO; -RIVA10TA PO; +RIVA10TA2 PO; +SENN-177 PO; -SENN1TAB7 PO; +SPIR50TA4 PO
[2019-01-21] MEDS ORDERED: MAGNESIUM SULFATE PMX 2GM/50ML 50 ML ONE (20:56)
[2019-01-21] MEDS ORDERED: methylPREDNISolone SOD SUCC 125 MG/2 ML ONE (20:56)
[2019-01-21] MEDS ORDERED: LORazepam 2 MG/ML, 1ML ONE (20:59)
--- NOTE | 2019-01-21 21:00 | NUR ---
Pt requesting to have clothes cut off to be put in gown.
--- NOTE | 2019-01-21 21:05 | NUR ---
125 mg solumedrol intiated and 2 G mag sulfate initiated per md verbal order.
--- NOTE | 2019-01-21 21:07 | NUR ---
Pt states hx of copd w/ @ home o2 of 6 L. Presents to ed after attempting 3 duonebs @home w/ no success. Found by [facility] of ra sat of 76%, but maintaining loc. Put on 6 L nc after 2 more duonebs from [facility] and sat of 93-98% observed. Hr of 1300-150 from [facility] w/ unremarkable ekg. Pt presents to ed in respiratory distress, utilizing accessory muscles to maintain sats. Pt still on 6 L nc. 2 mg ativan given per md order for admin of bipap. "i am too anxious to be able to handle that." Pt verbalizes not wanting to be intubated "no matter what". Pt hr maintained in 130's. Pt Denies cp. All monitoring intact. Rt at bedside. Attempting secondary iv access.
[2019-01-21] MEDS ORDERED: methylPREDNISolone SOD SUCC 125 MG/2 ML IVPush ONE (21:30)
[2019-01-21] MEDS ORDERED: MAGNESIUM SULFATE PMX 2GM/50ML 50 ML IV ONE (21:30)
[2019-01-21] MEDS ORDERED: LORazepam 2 MG/ML, 1ML IVPush ONE (21:30)
[2019-01-21] MEDS ORDERED: SODIUM CHLORIDE FLUSH 10ML SYR IVF ONE (21:30)
[2019-01-21 21:40] LABS: ALBUMIN 4.5 g/dL (3.4-5.0); ANION GAP 9 mmol/L (5-15); CALCIUM 9.5 mg/dL (8.5-10.1); CHLORIDE 85 mmol/L (98-107); CREATININE 1.49 mg/dL (0.55-1.02)
[2019-01-21 21:44] LABS: TROPONIN I 0.019 ng/mL (0.000-0.045)
--- NOTE | 2019-01-21 21:49 | NUR ---
Pt appears to be in less respiratory distress and states feeling less anxious and sob. Md aware. Pt would like bipap off as soon as possible. aware.
--- NOTE | 2019-01-21 22:18 | NUR ---
Rt notified per md verbal order and tx to 6 L nc trial. Pt appears to be tolerating thus far.
[2019-01-21 22:25] LABS: MEAN CORPUSCULAR HEMOGLOBIN 30.3 pg (27.0-34.8); MEAN CORPUSCULAR HGB CONC 33.1 g/dL (32.4-35.8); MEAN CORPUSCULAR VOLUME 91.7 fL (80-100); MEAN PLATELET VOLUME 7.3 fL (7.4-10.4); PLATELET COUNT 339 x10^3/uL (130-400); RED BLOOD COUNT 3.94 x10^6/uL (3.82-5.3); RED CELL DISTRIBUTION WIDTH 14.4 % (9.6-15.2)
[2019-01-21 22:26] LABS: ANISOCYTOSIS 1+; BASOPHILS % (AUTO) 0 % (0-1); EOSINOPHILS % (AUTO) 0 % (1-7); LYMPHOCYTES # (AUTO) 0.36 x10^3/uL (1-3.4); LYMPHOCYTES % (AUTO) 3 % (22-44); MD MORPH REVIEW ONLY; MONOCYTES # (AUTO) 0.04 x10^3/uL (0.2-0.8); MONOCYTES % (AUTO) 0 % (2-9); NEUTROPHILS # (AUTO) 11.43 x10^3/uL (1.8-6.8); NEUTROPHILS % (AUTO) 97 % (42-75); OVALOCYTES 1+; TEAR DROPS 1+
[2019-01-21 22:27] LABS: <PLATELET ESTIMATE> ADEQUATE; LARGE PLATELETS 1+
[2019-01-21] MEDS ORDERED: POLYETHYLENE GLYCOL 17 GM PACKET PO PRN (23:00)
[2019-01-21] MEDS ORDERED: PROMETHAZINE 25 MG/ML, 1ML IM PRN (23:00)
[2019-01-21] MEDS ORDERED: DOCUSATE 100 MG CAPSULE PO PRN (23:00)
[2019-01-21] MEDS ORDERED: ONDANSETRON 2MG/ML, 2ML IVPush PRN (23:00)
[2019-01-21] MEDS ORDERED: hydrALAzine 20 MG/ML, 1ML IVPush PRN (23:00)
[2019-01-21] MEDS ORDERED: HYDROcodone/APAP 5/325 TABLET PO PRN (23:00)
[2019-01-21] MEDS ORDERED: BISACODYL 10 MG SUPP PR PRN (23:00)
[2019-01-21] MEDS ORDERED: ONDANSETRON ODT 4 MG PO PRN (23:00)
[2019-01-21] MEDS ORDERED: ACETAMINOPHEN 325 MG TABLET PO PRN (23:00)
[2019-01-21] MEDS ORDERED: morphine SULFATE 10 MG/ML, 1ML IVPush PRN (23:00)
[2019-01-21 23:22] VITALS: BP 114/70
[2019-01-21 23:30] LABS: FREE T4 (FREE THYROXINE) 1.55 ng/dL (0.76-1.46)
[2019-01-21] MEDS ORDERED: SODIUM CHLORIDE 0.9% 1,000 ML IV SCH (23:30)
[2019-01-21 23:47] LABS: HEMOGLOBIN A1C 5.3 % (4.2-6.3)
[2019-01-22] MEDS: HEPARIN 5,000 UNITS/ML, 1ML SQ SCH ×3 (00:08→17:24)
[2019-01-22 01:36] VITALS: BP 113/62
[2019-01-22] MEDS ORDERED: ALBUTEROL/IPRATROPIUM 2.5MG/0.5MG, 3 ML NPPB SCH (03:00)
[2019-01-22] MEDS ORDERED: DILTIAZEM 30 MG TABLET ONE (03:23)
[2019-01-22] MEDS: DILTIAZEM 60 MG TABLET PO SCH ×4 (03:32→21:21)
[2019-01-22] MEDS: methylPREDNISolone SOD SUCC 125 MG/2 ML IVPush SCH ×4 (03:33→21:21)
[2019-01-22 06:11] LABS: ANION GAP 5 mmol/L (5-15); CALCIUM 9.5 mg/dL (8.5-10.1); CHLORIDE 88 mmol/L (98-107)
[2019-01-22 06:17] LABS: ALANINE AMINOTRANSFERASE 25 U/L (12-78); ALKALINE PHOSPHATASE 74 U/L (45-117); BILIRUBIN,TOTAL 0.4 mg/dL (0.2-1.0); CHOL/HDL RATIO 2.8; CHOLESTEROL, TOTAL 336 mg/dL (140-239); CREATININE 1.33 mg/dL (0.55-1.02); HDL CHOL % 36 % (28-40); HDL CHOLESTEROL (DIRECT) 122 mg/dL (40-60); LDL CHOLESTEROL,CALCULATED 202 mg/dL (54-169); LDL/HDL RATIO 1.7 (0.5-3.0); TOTAL PROTEIN 7.5 g/dL (6.4-8.2); TRIGLYCERIDES 60 mg/dL (50-200); VLDL CHOLESTEROL 12 mg/dL (0-25)
[2019-01-22 06:45] LABS: BASOPHILS # (AUTO) 0.01 x10^3/uL (0-0.1); BASOPHILS % (AUTO) 0 % (0-1); EOSINOPHILS # (AUTO) 0.01 x10^3/uL (0-0.4); EOSINOPHILS % (AUTO) 0 % (1-7); LYMPHOCYTES # (AUTO) 0.51 x10^3/uL (1-3.4); LYMPHOCYTES % (AUTO) 4 % (22-44); MD SCAN; MEAN CORPUSCULAR HEMOGLOBIN 30.7 pg (27.0-34.8); MEAN CORPUSCULAR HGB CONC 33.3 g/dL (32.4-35.8); MEAN CORPUSCULAR VOLUME 92.1 fL (80-100); MEAN PLATELET VOLUME 8.3 fL (7.4-10.4); MONOCYTES # (AUTO) 0.08 x10^3/uL (0.2-0.8); MONOCYTES % (AUTO) 1 % (2-9); NEUTROPHILS # (AUTO) 11.33 x10^3/uL (1.8-6.8); NEUTROPHILS % (AUTO) 95 % (42-75); PLATELET COUNT 221 x10^3/uL (130-400); RED BLOOD COUNT 4.09 x10^6/uL (3.82-5.3); RED CELL DISTRIBUTION WIDTH 14.4 % (9.6-15.2)
[2019-01-22] MEDS: ALBUTEROL/IPRATROPIUM 2.5MG/0.5MG, 3 ML NPPB PRN (06:49)
[2019-01-22 07:00] VITALS: BP 142/83
[2019-01-22 08:32] LABS: MICROSCOPIC NOT IND
[2019-01-22 08:43] LABS: CULTURE INDICATED? NO
[2019-01-22] MEDS: ASPIRIN 81 MG TABLET EC PO SCH (09:34)
[2019-01-22] MEDS: LEVOTHYROXINE 125 MCG TABLET PO SCH (09:34)
[2019-01-22] MEDS: INSULIN LISPRO 100 UNITS/ML, PEN SQ-INSULIN SCH ×4 (10:16→20:26)
[2019-01-22] MEDS: ALBUTEROL/IPRATROPIUM 2.5MG/0.5MG, 3 ML NPPB SCH ×3 (10:45→19:24)
[2019-01-22] MEDS: BUDESONIDE 0.5 MG/2 ML INHA NPPB SCH ×2 (10:45→19:24)
[2019-01-22] MEDS ORDERED: HYDR-3341 PO (12:23)
[2019-01-22] MEDS ORDERED: FLUT1DIS3 INH (12:23)
[2019-01-22] MEDS ORDERED: FLUT1AER INH (12:23)
[2019-01-22] MEDS ORDERED: PANT20TA2 PO (12:23)
[2019-01-22] MEDS ORDERED: IPRA3AMP30 NEB (12:23)
[2019-01-22] MEDS ORDERED: TEMA15CA PO (12:23)
[2019-01-22] MEDS ORDERED: HYDR25TA6 PO (12:23)
[2019-01-22] MEDS ORDERED: ALBU6.7H8 INH (12:23)
[2019-01-22 12:44] VITALS: BP 141/81
[2019-01-22 17:19] VITALS: BP 179/104
[2019-01-22 18:04] VITALS: BP 112/72
[2019-01-22 19:38] VITALS: BP 107/77
[2019-01-22] MEDS: TEMAZEPAM 15 MG CAPSULE PO PRN (21:21)
[2019-01-23 01:49] VITALS: BP 116/71
[2019-01-23] MEDS: HEPARIN 5,000 UNITS/ML, 1ML SQ SCH ×3 (01:51→16:19)
[2019-01-23] MEDS: methylPREDNISolone SOD SUCC 125 MG/2 ML IVPush SCH ×4 (03:58→20:42)
[2019-01-23] MEDS: DILTIAZEM 60 MG TABLET PO SCH ×4 (03:59→20:41)
[2019-01-23 04:38] LABS: MEAN CORPUSCULAR HEMOGLOBIN 31.8 pg (27.0-34.8); MEAN CORPUSCULAR HGB CONC 33.6 g/dL (32.4-35.8); MEAN CORPUSCULAR VOLUME 94.6 fL (80-100); MEAN PLATELET VOLUME 7.6 fL (7.4-10.4); PLATELET COUNT 270 x10^3/uL (130-400); RED BLOOD COUNT 3.41 x10^6/uL (3.82-5.3); RED CELL DISTRIBUTION WIDTH 14.7 % (9.6-15.2)
[2019-01-23 04:47] LABS: ANION GAP 8 mmol/L (5-15); CALCIUM 9.1 mg/dL (8.5-10.1); CHLORIDE 88 mmol/L (98-107)
[2019-01-23 04:48] LABS: CREATININE 1.38 mg/dL (0.55-1.02)
[2019-01-23 05:17] LABS: BASOPHILS # (AUTO) 0.02 x10^3/uL (0-0.1); BASOPHILS % (AUTO) 0 % (0-1); EOSINOPHILS # (AUTO) 0.24 x10^3/uL (0-0.4); EOSINOPHILS % (AUTO) 1 % (1-7); LYMPHOCYTES # (AUTO) 0.73 x10^3/uL (1-3.4); LYMPHOCYTES % (AUTO) 4 % (22-44); MD SCAN; MONOCYTES % (AUTO) 3 % (2-9); NEUTROPHILS # (AUTO) 16.76 x10^3/uL (1.8-6.8); NEUTROPHILS % (AUTO) 92 % (42-75)
[2019-01-23] MEDS: ALBUTEROL/IPRATROPIUM 2.5MG/0.5MG, 3 ML NPPB SCH (06:35)
[2019-01-23] MEDS: BUDESONIDE 0.5 MG/2 ML INHA NPPB SCH (06:45)
[2019-01-23] MEDS: INSULIN LISPRO 100 UNITS/ML, PEN SQ-INSULIN SCH ×4 (07:00→21:00)
[2019-01-23 08:00] VITALS: BP 177/80
[2019-01-23] MEDS: ASPIRIN 81 MG TABLET EC PO SCH (08:38)
[2019-01-23] MEDS: LEVOTHYROXINE 125 MCG TABLET PO SCH (08:40)
[2019-01-23] MEDS: AZITHROMYCIN 500 MG TABLET PO SCH (12:32)
[2019-01-23] MEDS: TAMSULOSIN 0.4 MG CAP.ER.24H PO SCH (12:32)
[2019-01-23 14:00] VITALS: BP 177/80
[2019-01-23 19:50] VITALS: BP 123/71
[2019-01-24 00:08] VITALS: BP 111/69
[2019-01-24] MEDS: TEMAZEPAM 15 MG CAPSULE PO PRN ×2 (00:38→22:37)
[2019-01-24] MEDS: ALBUTEROL/IPRATROPIUM 2.5MG/0.5MG, 3 ML NPPB PRN ×2 (00:41→08:15)
[2019-01-24] MEDS: HEPARIN 5,000 UNITS/ML, 1ML SQ SCH ×3 (01:20→16:52)
[2019-01-24] MEDS: DILTIAZEM 60 MG TABLET PO SCH ×4 (02:51→20:43)
[2019-01-24] MEDS: methylPREDNISolone SOD SUCC 125 MG/2 ML IVPush SCH ×4 (02:51→20:43)
[2019-01-24 05:52] LABS: MEAN CORPUSCULAR HEMOGLOBIN 34.2 pg (27.0-34.8); MEAN CORPUSCULAR HGB CONC 35.2 g/dL (32.4-35.8); MEAN CORPUSCULAR VOLUME 97.4 fL (80-100); MEAN PLATELET VOLUME 7.7 fL (7.4-10.4); PLATELET COUNT 230 x10^3/uL (130-400); RED BLOOD COUNT 3.07 x10^6/uL (3.82-5.3); RED CELL DISTRIBUTION WIDTH 14.9 % (9.6-15.2)
[2019-01-24 06:07] LABS: CHLORIDE 89 mmol/L (98-107)
[2019-01-24 06:12] LABS: ANION GAP 9 mmol/L (5-15); CALCIUM 8.8 mg/dL (8.5-10.1); CREATININE 1.41 mg/dL (0.55-1.02)
[2019-01-24 07:16] LABS: BASOPHILS % (AUTO) 0 % (0-1); EOSINOPHILS % (AUTO) 0 % (1-7); LYMPHOCYTES # (AUTO) 0.35 x10^3/uL (1-3.4); LYMPHOCYTES % (AUTO) 3 % (22-44); MD SCAN; MONOCYTES % (AUTO) 2 % (2-9); NEUTROPHILS # (AUTO) 12.53 x10^3/uL (1.8-6.8); NEUTROPHILS % (AUTO) 95 % (42-75)
[2019-01-24] MEDS: LEVOTHYROXINE 125 MCG TABLET PO SCH (08:14)
[2019-01-24] MEDS: INSULIN LISPRO 100 UNITS/ML, PEN SQ-INSULIN SCH ×4 (08:14→20:33)
[2019-01-24] MEDS: ASPIRIN 81 MG TABLET EC PO SCH (08:15)
[2019-01-24] MEDS: AZITHROMYCIN 500 MG TABLET PO SCH (08:15)
[2019-01-24] MEDS: TAMSULOSIN 0.4 MG CAP.ER.24H PO SCH (08:15)
[2019-01-24 09:29] VITALS: BP 114/73
[2019-01-24] MEDS: CEFTRIAXONE PMX 1GM/50ML 50 ML IV SCH (11:23)
[2019-01-24] MEDS ORDERED: ALBUTEROL/IPRATROPIUM 2.5MG/0.5MG, 3 ML ONE (15:14)
[2019-01-24] MEDS: ALBUTEROL/IPRATROPIUM 2.5MG/0.5MG, 3 ML NPPB SCH ×2 (15:20→20:55)
[2019-01-24 15:35] VITALS: BP 110/72
[2019-01-24] MEDS: LORazepam 0.5MG TABLET PO PRN (17:54)
[2019-01-24 19:21] VITALS: BP 115/76
[2019-01-24] MEDS ORDERED: ALBUTEROL/IPRATROPIUM 2.5MG/0.5MG, 3 ML NPPB SCH (21:00)
[2019-01-25 01:14] VITALS: BP 109/72
[2019-01-25] MEDS: HEPARIN 5,000 UNITS/ML, 1ML SQ SCH ×3 (02:44→18:24)
[2019-01-25] MEDS: methylPREDNISolone SOD SUCC 125 MG/2 ML IVPush SCH ×3 (02:44→20:58)
[2019-01-25] MEDS: DILTIAZEM 60 MG TABLET PO SCH ×5 (02:44→21:34)
[2019-01-25] MEDS: LORazepam 0.5MG TABLET PO PRN ×2 (05:20→20:06)
[2019-01-25 07:19] VITALS: BP 132/78
[2019-01-25] MEDS: ASPIRIN 81 MG TABLET EC PO SCH (08:29)
[2019-01-25] MEDS: LEVOTHYROXINE 125 MCG TABLET PO SCH (08:29)
[2019-01-25] MEDS: TAMSULOSIN 0.4 MG CAP.ER.24H PO SCH (08:31)
[2019-01-25] MEDS: INSULIN LISPRO 100 UNITS/ML, PEN SQ-INSULIN SCH ×4 (08:34→21:05)
[2019-01-25] MEDS: ALBUTEROL/IPRATROPIUM 2.5MG/0.5MG, 3 ML NPPB SCH ×3 (11:00→20:13)
[2019-01-25] MEDS: SERTRALINE 100MG TABLET PO SCH (11:29)
[2019-01-25] MEDS: CEFTRIAXONE PMX 1GM/50ML 50 ML IV SCH (11:44)
[2019-01-25 13:08] VITALS: BP 117/72
[2019-01-25] MEDS ORDERED: PNEUMOC 13-VALENT VACC, 0.5 ML IM-VACC ONE (16:30)
[2019-01-25 20:03] VITALS: BP 125/76
[2019-01-25] MEDS: TEMAZEPAM 15 MG CAPSULE PO PRN (20:58)
[2019-01-25 21:02] VITALS: BP 104/68
[2019-01-26 01:11] VITALS: BP 116/77
[2019-01-26] MEDS: ALBUTEROL/IPRATROPIUM 2.5MG/0.5MG, 3 ML NPPB SCH ×4 (01:35→21:08)
[2019-01-26 03:00] VITALS: BP 135/74
[2019-01-26] MEDS: DILTIAZEM 60 MG TABLET PO SCH ×4 (03:00→20:26)
[2019-01-26] MEDS: HEPARIN 5,000 UNITS/ML, 1ML SQ SCH ×3 (03:00→18:00)
[2019-01-26 05:16] LABS: CALCIUM 8.6 mg/dL (8.5-10.1); CHLORIDE 92 mmol/L (98-107)
[2019-01-26 05:19] LABS: ANION GAP 8 mmol/L (5-15); CREATININE 1.52 mg/dL (0.55-1.02)
[2019-01-26] MEDS: INSULIN LISPRO 100 UNITS/ML, PEN SQ-INSULIN SCH ×4 (07:00→20:27)
[2019-01-26 07:35] VITALS: BP 136/77
[2019-01-26] MEDS: LORazepam 0.5MG TABLET PO PRN (07:48)
[2019-01-26] MEDS: LEVOTHYROXINE 125 MCG TABLET PO SCH (08:44)
[2019-01-26] MEDS: TAMSULOSIN 0.4 MG CAP.ER.24H PO SCH (08:45)
[2019-01-26] MEDS: SERTRALINE 100MG TABLET PO SCH (08:45)
[2019-01-26] MEDS: ASPIRIN 81 MG TABLET EC PO SCH (08:45)
[2019-01-26] MEDS: methylPREDNISolone SOD SUCC 125 MG/2 ML IVPush SCH (08:46)
[2019-01-26] MEDS: CEFTRIAXONE PMX 1GM/50ML 50 ML IV SCH (11:29)
[2019-01-26 12:25] VITALS: BP 135/63
[2019-01-26 15:37] VITALS: BP 132/65
[2019-01-26] MEDS ORDERED: FUROSEMIDE 20 MG/2 ML IV ONE (16:00)
[2019-01-26] MEDS ORDERED: POTASSIUM CHLORIDE 20 MEQ TAB.ER.PRT PO ONE (16:00)
[2019-01-26 20:24] VITALS: BP 103/67
[2019-01-26] MEDS: TEMAZEPAM 15 MG CAPSULE PO PRN (20:30)
[2019-01-27] MEDS: ALBUTEROL/IPRATROPIUM 2.5MG/0.5MG, 3 ML NPPB SCH ×4 (02:05→16:00)
[2019-01-27 02:16] VITALS: BP 108/75
[2019-01-27] MEDS: DILTIAZEM 60 MG TABLET PO SCH ×2 (02:18→09:54)
[2019-01-27] MEDS: HEPARIN 5,000 UNITS/ML, 1ML SQ SCH ×2 (02:18→10:30)
[2019-01-27 06:04] LABS: CHLORIDE 92 mmol/L (98-107)
[2019-01-27 06:07] LABS: ANION GAP 7 mmol/L (5-15); CALCIUM 8.5 mg/dL (8.5-10.1); CREATININE 1.59 mg/dL (0.55-1.02)
[2019-01-27 06:17] LABS: MEAN CORPUSCULAR HGB CONC 33.3 g/dL (32.4-35.8); MEAN CORPUSCULAR VOLUME 93.3 fL (80-100); MEAN PLATELET VOLUME 7.4 fL (7.4-10.4); PLATELET COUNT 239 x10^3/uL (130-400); RED BLOOD COUNT 3.33 x10^6/uL (3.82-5.3); RED CELL DISTRIBUTION WIDTH 14.8 % (9.6-15.2)
[2019-01-27 06:19] LABS: BASOPHILS # (AUTO) 0.03 x10^3/uL (0-0.1); BASOPHILS % (AUTO) 0 % (0-1); EOSINOPHILS # (AUTO) 0.12 x10^3/uL (0-0.4); EOSINOPHILS % (AUTO) 1 % (1-7); LYMPHOCYTES # (AUTO) 0.52 x10^3/uL (1-3.4); LYMPHOCYTES % (AUTO) 4 % (22-44); MD SCAN; MONOCYTES # (AUTO) 0.77 x10^3/uL (0.2-0.8); MONOCYTES % (AUTO) 5 % (2-9); NEUTROPHILS # (AUTO) 13.27 x10^3/uL (1.8-6.8); NEUTROPHILS % (AUTO) 90 % (42-75)
[2019-01-27] MEDS: INSULIN LISPRO 100 UNITS/ML, PEN SQ-INSULIN SCH ×2 (07:00→11:00)
[2019-01-27] MEDS: ASPIRIN 81 MG TABLET EC PO SCH (09:54)
[2019-01-27] MEDS: LEVOTHYROXINE 125 MCG TABLET PO SCH (09:55)
[2019-01-27] MEDS: SERTRALINE 100MG TABLET PO SCH (09:55)
[2019-01-27] MEDS: TAMSULOSIN 0.4 MG CAP.ER.24H PO SCH (09:56)
[2019-01-27] MEDS ORDERED: HYDR-3341 PO (10:08)
[2019-01-27] MEDS ORDERED: CEPH-368 PO (10:08)
[2019-01-27] MEDS ORDERED: TAMS-11 PO (10:08)
[2019-01-27] MEDS: CEFTRIAXONE PMX 1GM/50ML 50 ML IV SCH (11:05)
[2019-01-27] MEDS: LORazepam 0.5MG TABLET PO PRN (11:47)
[2019-01-27 13:41] VITALS: BP 96/66
== END 2019-01-27 16:53 | disposition home health service (06) | DRG 871 ==
LOC: ED 22:15 → EDIP 23:06 → 4WST 23:16 → DCLOUNGE 01-27 16:37
PROVIDERS: ADMIT Internal Medicine; ATTEND Internal Medicine
PROC: 5A09357 Assistance with Respiratory Ventilation, Less than 24 Consecutive Hours, Continuous Positive Airway Pressure (ICD-10-PCS; principal; 2019-01-21)
DX: A41.9 Sepsis, unspecified organism (principal); J96.20 Acute and chronic respiratory failure, unspecified whether with hypoxia or hypercapnia; N17.0 Acute kidney failure with tubular necrosis; J44.1 Chronic obstructive pulmonary disease with (acute) exacerbation; I50.32 Chronic diastolic (congestive) heart failure; E87.1 Hypo-osmolality and hyponatremia; I13.0 Hypertensive heart and chronic kidney disease with heart failure and stage 1 through stage 4 chronic kidney disease, or unspecified chronic kidney disease; B96.1 Klebsiella pneumoniae [K. pneumoniae] as the cause of diseases classified elsewhere; D72.829 Elevated white blood cell count, unspecified; E03.9 Hypothyroidism, unspecified; F32.9 Major depressive disorder, single episode, unspecified; F41.9 Anxiety disorder, unspecified; I25.2 Old myocardial infarction; T38.0X5A Adverse effect of glucocorticoids and synthetic analogues, initial encounter; Y92.89 Other specified places as the place of occurrence of the external cause; Z74.01 Bed confinement status; Z79.52 Long term (current) use of systemic steroids; Z82.49 Family history of ischemic heart disease and other diseases of the circulatory system; Z82.5 Family history of asthma and other chronic lower respiratory diseases; Z87.891 Personal history of nicotine dependence; Z99.81 Dependence on supplemental oxygen; N18.9 Chronic kidney disease, unspecified
CPT/HCPCS: 36415; 36600; 71045; 80048; 80053; 80061; 81003; 82040; 82803; 82962; 83036; 83605; 83735; 84439; 84443; 84484; 85025; 87040; 87070; 87077; 87186; 87205; 93005; 93308; 94640; 94660; G0378; J0696; J1644; J7620; J7626; G0009; J0360; J1815; J1940; J2060; J2270; J2930; J3475; J7030; J7512

== ENCOUNTER 2019-02-13 22:44 | Emergency (ER) | payer MEDICARE ==
[~2019-02-13] VITALS: Ht 167.6 cm; Wt 91.0 kg
[~2019-02-13 22:44] MED LIST changes: +ALBU6.7H8 INH; +CEPH-368 PO; +FLUT1DIS3 INH; +HYDR-3341 PO; +HYDR25TA6 PO; +IPRA3AMP30 NEB; +PANT20TA2 PO; +TAMS-11 PO; +TEMA15CA PO
--- NOTE | 2019-02-13 22:51 | NUR ---
BIB [facility] FROM HOME WITH C/O HIGH BLOOD PRESSURE 194/100 PER EMS , PT DENIES SOB, LIGHT HEADEDNESS, H/X CHF, HTN. EKG ST WITH PVC'S, HR-120, B/P RECHECK-164/80, 4L N/C-91%, HOME O2 AT 4LN/C. PT RECEIVED 2 DUONEBS AND 1 ALB NEB ENROUTE. MONITORS APPLIED, SIDERAILS UP X2, CALL LIGHT WITHIN REACH
--- NOTE | 2019-02-13 22:59 | NUR ---
PT MEDICATED PER MAR
[2019-02-13] MEDS ORDERED: NITROGLYCERIN SINGLE TAB 0.4 MG SL PRN (23:00)
[2019-02-13 23:10] LABS: BASOPHILS # (AUTO) 0.01 x10^3/uL (0-0.1); BASOPHILS % (AUTO) 0 % (0-1); EOSINOPHILS # (AUTO) 0.02 x10^3/uL (0-0.4); EOSINOPHILS % (AUTO) 0 % (1-7); LYMPHOCYTES % (AUTO) 8 % (22-44); MD NO; MEAN CORPUSCULAR HGB CONC 33.8 g/dL (32.4-35.8); MEAN CORPUSCULAR VOLUME 97.8 fL (80-100); MEAN PLATELET VOLUME 7.4 fL (7.4-10.4); MONOCYTES # (AUTO) 0.44 x10^3/uL (0.2-0.8); MONOCYTES % (AUTO) 6 % (2-9); NEUTROPHILS # (AUTO) 6.55 x10^3/uL (1.8-6.8); NEUTROPHILS % (AUTO) 86 % (42-75); PLATELET COUNT 324 x10^3/uL (130-400); RED BLOOD COUNT 3.23 x10^6/uL (3.82-5.3); RED CELL DISTRIBUTION WIDTH 15.9 % (9.6-15.2)
[2019-02-13 23:19] LABS: ALANINE AMINOTRANSFERASE 33 U/L (12-78); ALBUMIN 3.8 g/dL (3.4-5.0); ANION GAP 7 mmol/L (5-15); CALCIUM 8.9 mg/dL (8.5-10.1); CHLORIDE 92 mmol/L (98-107); CREATININE 1.08 mg/dL (0.55-1.02)
[2019-02-13 23:24] LABS: ALKALINE PHOSPHATASE 68 U/L (45-117); BILIRUBIN,TOTAL 0.6 mg/dL (0.2-1.0); TOTAL PROTEIN 7.3 g/dL (6.4-8.2); TROPONIN I 0.022 ng/mL (0.000-0.045)
[2019-02-13] MEDS ORDERED: HYDR-3341 PO (23:58)
--- NOTE | 2019-02-14 00:15 | NUR ---
Break RN: ERP at bedside for re-evaluation.
[2019-02-14 01:23] VITALS: BP 135/76
== END 2019-02-14 01:26 | disposition home or self-care (01) ==
LOC: ED 22:58
DX: J44.1 Chronic obstructive pulmonary disease with (acute) exacerbation (principal); R00.0 Tachycardia, unspecified; I25.2 Old myocardial infarction; I11.0 Hypertensive heart disease with heart failure; I50.9 Heart failure, unspecified; Z87.891 Personal history of nicotine dependence
CPT/HCPCS: 36415; 71045; 80053; 83880; 84484; 85025; 93005; 99284; J7512

== ENCOUNTER 2019-05-29 12:12 | Inpatient (IN) | payer MEDICARE ==
[~2019-05-29] VITALS: Ht 167.6 cm; Wt 92.3 kg
[~2019-05-29 12:12] MED LIST changes: +CLON0.1T22 PO; +HYDR-3342 PO; +METO25TA91 PO; +SIMV20TA19 PO; -SIMV20TA3 PO
[2019-05-29] MEDS ORDERED: NITROGLYCERIN/D5W PMX 250 ML IV PRN (12:14)
[2019-05-29] MEDS ORDERED: NITROGLYCERIN/D5W PMX 250 ML ONE (12:23)
[2019-05-29] MEDS ORDERED: SODIUM CHLORIDE FLUSH 10ML SYR IVF ONE (12:30)
[2019-05-29] MEDS ORDERED: MAGNESIUM SULFATE PMX 2GM/50ML 50 ML IVPB ONE (12:30)
--- NOTE | 2019-05-29 12:30 | NUR ---
BIB [facility] FROM HOME C/O SEVERE RESPIRATORY DISTRESS, PT GIVEN 2X NEBULIZER AND SOLUMEDROL 125 IN ROUTE, PT VERBALIZED TO MD IN TRAUMA BAY SHE DOES NOT WISH TO BE INTUBATED. RT CALLED AND PT PLACED ON OPTI ROGERIO 40% 45L. NITRO GTT STARTED PER MD AT 50MCG/H FOR BP OF 214/113 AND SEVERE RESPIRATORY DISTRESS.
[2019-05-29 12:51] LABS: INTERNATIONAL NORMALIZED RATIO 1.01 (0.93-1.1); PROTHROMBIN TIME 10.7 Seconds (9.6-11.5)
[2019-05-29 12:52] LABS: ALANINE AMINOTRANSFERASE 31 U/L (12-78); ALBUMIN 4.3 g/dL (3.4-5.0); ANION GAP 6 mmol/L (5-15); CALCIUM 9.1 mg/dL (8.5-10.1); CHLORIDE 94 mmol/L (98-107); CREATININE 1.12 mg/dL (0.55-1.02)
--- NOTE | 2019-05-29 12:55 | NUR ---
NITRO GTT STOPPED @1241
[2019-05-29 12:57] LABS: ALKALINE PHOSPHATASE 73 U/L (45-117); BILIRUBIN,TOTAL 0.8 mg/dL (0.2-1.0)
[2019-05-29 12:59] LABS: TROPONIN I 0.242 ng/mL (0.000-0.045)
[2019-05-29] MEDS ORDERED: PLEASE ENTER HEIGHT AND WEIGHT MC SCH (13:00)
--- NOTE | 2019-05-29 13:12 | NUR ---
PER MD GIVE 1LNS BOLUS
[2019-05-29 13:21] LABS: MEAN CORPUSCULAR HEMOGLOBIN 33.8 pg (27.0-34.8); MEAN CORPUSCULAR VOLUME 93.8 fL (80-100); MEAN PLATELET VOLUME 7.9 fL (7.4-10.4); PLATELET COUNT 307 x10^3/uL (130-400); RED BLOOD COUNT 3.91 x10^6/uL (3.82-5.3); RED CELL DISTRIBUTION WIDTH 15.3 % (9.6-15.2)
[2019-05-29 13:22] LABS: BASOPHILS # (AUTO) 0.05 x10^3/uL (0-0.1); BASOPHILS % (AUTO) 0 % (0-1); EOSINOPHILS % (AUTO) 0 % (1-7); LYMPHOCYTES # (AUTO) 1.22 x10^3/uL (1-3.4); LYMPHOCYTES % (AUTO) 7 % (22-44); MD SCAN; MONOCYTES # (AUTO) 1.68 x10^3/uL (0.2-0.8); MONOCYTES % (AUTO) 10 % (2-9); NEUTROPHILS # (AUTO) 13.82 x10^3/uL (1.8-6.8); NEUTROPHILS % (AUTO) 82 % (42-75)
[2019-05-29] MEDS ORDERED: SODIUM CHLORIDE 0.9% 1,000ML IVBOLUS ONE (13:30)
--- NOTE | 2019-05-29 13:33 | NUR ---
FAMILY AT BEDSIDE, UPDATED ON PLAN OF CARE
--- NOTE | 2019-05-29 13:53 | NUR ---
RT PAGED TO TITRATE DOWN OPTI-ROGERIO
--- NOTE | 2019-05-29 13:59 | NUR ---
BREAK RN: REPORT FROM JUAN M PHILLIPS FOR BREAK. PT RESTING IN ROOM. OPTI-FLOW ON. FAMILY AT BEDSIDE. VS STABLE. CALL LIGHT IN PLACE. WILL CONTINUE TO MONITOR WHILE PRIMAY RN IS ON BREAK.
[2019-05-29] MEDS: methylPREDNISolone SOD SUCC 40 MG/ML IV SCH (14:30)
[2019-05-29] MEDS ORDERED: ACETAMINOPHEN 325 MG TABLET PO PRN (14:30)
[2019-05-29] MEDS ORDERED: ENOXAPARIN 40 MG/0.4 ML SQ SCH (14:30)
--- NOTE | 2019-05-29 14:42 | NUR ---
HOLD SOLUMEDROL DOSE PER , PT REC'D SOLUMEDROL 125MG FROM EMS APPROX 1.5H AGO.
[2019-05-29] MEDS ORDERED: ALBUTEROL/IPRATROPIUM 2.5MG/0.5MG, 3 ML ONE (15:14)
--- NOTE | 2019-05-29 15:22 | NUR ---
REPORT RECIEVED FROM JACQUELINE MCGOWAN. PT TRANSPORTED TO ED 2. VSS.
[2019-05-29] MEDS ORDERED: ENOXAPARIN 40 MG/0.4 ML ONE (15:24)
[2019-05-29] MEDS ORDERED: ONDANSETRON ODT 4 MG ONE (15:55)
--- NOTE | 2019-05-29 16:07 | NUR ---
REPORT TO SANGEETHA MCGOWAN FOR CINDY MCGOWAN
[2019-05-29 17:08] VITALS: BP 166/93
[2019-05-29 18:50] VITALS: BP 162/81
[2019-05-29] MEDS: ALBUTEROL/IPRATROPIUM 2.5MG/0.5MG, 3 ML NPPB SCH ×2 (19:27→23:25)
[2019-05-29] MEDS: BUDESONIDE 0.5 MG/2 ML INHA INH SCH (19:27)
[2019-05-30 01:32] VITALS: BP 134/83
[2019-05-30] MEDS: methylPREDNISolone SOD SUCC 40 MG/ML IV SCH (03:06)
[2019-05-30] MEDS ORDERED: FUROSEMIDE 20 MG/2 ML ONE (05:44)
[2019-05-30] MEDS ORDERED: LEVOTHYROXINE 125 MCG TABLET PO SCH (06:00)
[2019-05-30 06:30] LABS: TROPONIN I 0.191 ng/mL (0.000-0.045)
[2019-05-30 06:43] LABS: MEAN CORPUSCULAR HEMOGLOBIN 33.8 pg (27.0-34.8); MEAN CORPUSCULAR HGB CONC 36.2 g/dL (32.4-35.8); MEAN CORPUSCULAR VOLUME 93.3 fL (80-100); MEAN PLATELET VOLUME 8.2 fL (7.4-10.4); PLATELET COUNT 325 x10^3/uL (130-400); RED BLOOD COUNT 3.85 x10^6/uL (3.82-5.3); RED CELL DISTRIBUTION WIDTH 15.2 % (9.6-15.2)
[2019-05-30] MEDS: ALBUTEROL/IPRATROPIUM 2.5MG/0.5MG, 3 ML NPPB SCH (07:05)
[2019-05-30] MEDS: BUDESONIDE 0.5 MG/2 ML INHA INH SCH (07:05)
[2019-05-30 07:19] VITALS: BP 189/92
[2019-05-30 07:19] LABS: ANION GAP 11 mmol/L (5-15); CALCIUM 8.8 mg/dL (8.5-10.1); CHLORIDE 96 mmol/L (98-107); CREATININE 1.82 mg/dL (0.55-1.02)
[2019-05-30 07:27] LABS: BASOPHILS # (AUTO) 0.01 x10^3/uL (0-0.1); BASOPHILS % (AUTO) 0 % (0-1); EOSINOPHILS % (AUTO) 0 % (1-7); LYMPHOCYTES # (AUTO) 1.44 x10^3/uL (1-3.4); LYMPHOCYTES % (AUTO) 9 % (22-44); MD SCAN; MONOCYTES # (AUTO) 0.95 x10^3/uL (0.2-0.8); MONOCYTES % (AUTO) 6 % (2-9); NEUTROPHILS # (AUTO) 14.07 x10^3/uL (1.8-6.8); NEUTROPHILS % (AUTO) 85 % (42-75)
[2019-05-30] MEDS ORDERED: LORazepam 2 MG/ML, 1ML IVPush PRN (08:00)
[2019-05-30] MEDS ORDERED: morphine SULFATE 10 MG/ML, 1ML IVPush PRN (08:00)
[2019-05-30] MEDS ORDERED: SCOPOLAMINE 1MG PATCH TD PRN (08:00)
[2019-05-30] MEDS ORDERED: ATROPINE OPHTH SOLN 1%, 5ML PO PRN ×2 (08:00→09:00)
[2019-05-30] MEDS ORDERED: SERTRALINE 100MG TABLET PO SCH (09:00)
[2019-05-30] MEDS ORDERED: ASPIRIN 81 MG TABLET EC PO SCH (09:00)
[2019-05-30] MEDS ORDERED: FUROSEMIDE 20 MG/2 ML IV SCH (09:00)
[2019-05-30] MEDS: MORPHINE 30MG/30ML PCA.SYR IV PRN ×2 (10:31→20:47)
[2019-05-30] MEDS: MORPHINE SULFATE 4 MG/ML, 1ML IVPush PRN (20:11)
[2019-05-31] MEDS: MORPHINE SULFATE 4 MG/ML, 1ML IVPush PRN ×2 (02:21→08:24)
[2019-05-31] MEDS: MORPHINE 30MG/30ML PCA.SYR IV PRN ×2 (03:03→06:15)
== END 2019-05-31 11:30 | disposition expired | DRG 291 ==
LOC: ED 13:50 → EDIP 14:13 → 4WST 17:15 → 4NE 05-30 08:51
PROVIDERS: ADMIT Internal Medicine Infectious Disease; ATTEND Internal Medicine Infectious Disease
DX: I13.0 Hypertensive heart and chronic kidney disease with heart failure and stage 1 through stage 4 chronic kidney disease, or unspecified chronic kidney disease (principal); I50.31 Acute diastolic (congestive) heart failure; J96.21 Acute and chronic respiratory failure with hypoxia; E87.1 Hypo-osmolality and hyponatremia; J98.11 Atelectasis; N17.9 Acute kidney failure, unspecified; R65.10 Systemic inflammatory response syndrome (SIRS) of non-infectious origin without acute organ dysfunction; D72.829 Elevated white blood cell count, unspecified; E78.5 Hyperlipidemia, unspecified; J43.9 Emphysema, unspecified; I25.2 Old myocardial infarction; E89.0 Postprocedural hypothyroidism; N18.3 Chronic kidney disease, stage 3 (moderate); Z51.5 Encounter for palliative care; Z66 Do not resuscitate; Z82.49 Family history of ischemic heart disease and other diseases of the circulatory system; Z99.81 Dependence on supplemental oxygen
CPT/HCPCS: 36600; 71045; 80048; 80053; 82803; 83605; 83880; 84145; 84484; 85025; 85610; 85730; 87040; 93005; 94640; 96374; G0378; J1650; J2270; J7626; J2060; J2920; J7030